=== PATIENT | female | born 2000 | race Caucasian/White ===

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

== ENCOUNTER → 2022-01-13 08:40 | Outpatient (CLI) | payer BC, SELFPAY ==
--- NOTE | 2022-01-13 08:45 | MR_ITS ---
FINAL REPORT CLINICAL HISTORY: LOWER ABD PAIN FINDINGS: Multiplanar MR imaging was obtained of the pelvis with and without contrast. The bony structures are intact without mass, fracture or bone marrow edema. The musculature is intact. There is a small amount of hemorrhage in the endometrial cavity that may be related to phase of menstrual cycle. There is a 1.7 cm cyst in the left ovary. A small amount of pelvic free fluid may be reactive or physiologic. There is no abnormal contrast enhancement. IMPRESSION: 1.7 cm left ovarian cyst. Small amount of pelvic free fluid may be reactive or physiologic. Reviewed, Interpreted and Dictated by Azar Vicente III, MD Transcribed by Oscar Horn Authenticated by Azar Vicente III, MD on 01/13/2022 11:15:27 AM [facility]
--- NOTE | 2022-01-13 08:45 | MR_ITS ---
FINAL REPORT CLINICAL HISTORY: LOWER ABD PAIN 12ml prohance given FINDINGS: Multiplanar MR imaging of the abdomen was performed without and with contrast. There is a 5 mm mass in the inferior right hepatic lobe that shows contrast enhancement on delayed imaging. There is no evidence of biliary ductal dilatation. The gallbladder has an unremarkable appearance. No other mass or adenopathy is identified. No abnormal fluid collection is seen. No other contrast enhancement is seen on the postcontrast images. IMPRESSION: 5 mm mass in the inferior right hepatic lobe may represent a small hemangioma or other mass such as an adenoma. If indicated, follow-up in 6-12 months. Reviewed, Interpreted and Dictated by Azar Vicente III, MD Transcribed by Oscar Horn Authenticated by Azar Vicente III, MD on 01/13/2022 10:54:49 AM [facility]
== END ==
PROVIDERS: PCP Internal Medicine Adolescent Medicine; Visit Provider Internal Medicine Adolescent Medicine
DX: R10.30 Lower abdominal pain, unspecified (principal)
CPT/HCPCS: 72197; 74183; A9576

== ENCOUNTER 2022-06-29 16:02 | Emergency (ER) | payer BC, SELFPAY ==
--- NOTE | 2022-06-29 16:33 | EXP.UTC ---
Discharge Plan Disposition Patient Disposition: Home, Self-Care Condition: Good Prescriptions Prescriptions: New cephalexin 500 mg capsule 500 mg PO BID 7 Days Qty: 14 0RF fluconazole [Diflucan] 150 mg tablet 150 mg PO Q3D Qty: 2 0RF Rx Instructions: may repeat second dose 72 hrs after first dose if symptoms persist No Action Nexplanon 68 mg implant 68 mg SUBDERMAL DAILY Referrals Follow up/Referrals: Oleg Hager MD [Primary Care Provider] - See instructions Activity Restrictions/Add. Instructions Additional Instructions/Restrictions: *Increase fluids. Water not Soda or Tea *Start antibiotic immediately and be sure to take as ordered for the FULL length of time although you should start to see improvement over the next 48 hours *Be SURE to follow up anytime for new or worsening symptoms with your family doctor. AND in 48 hours for urine culture results with your family doctor, if you do not have a doctor then you may call back to the [facility] for urine culture results and further treatment. We do recommend that you choose and establish care with a Primary Care Physician. ?AND follow up with them ?in 10-14 days to repeat UA to ensure infection is resolved and blood no longer present *Be sure to let your PCP know that we sent urine cultures from the [facility] so they can follow up to ensure that you area the on the correct antibiotic Call your doctor office and make appointment for 48 hours (2 days from today) ?to follow up and get the results of your urine culture and further treatment Clinical Impressions Clinical Impression: UTI symptoms Instructions Patient Instructions: Urinary Tract Infection, Fluconazole Discharge ED Provider: Monique Mcrae [facility] HPI General Stated complaint: possible UTI Time Seen by Provider: 06/29/22 16:34 History of Present Illness Provider Complaint: Patient states that she feels like she may have a UTI States that she just got back from her honeymoon and States that she has been having feeling or urgency and frequency, burning when she urinates with itching like feeling State that symptoms have been going on for about 3 days and not got better so she came in to get checked out Related Data Home Medications Medication Instructions Recorded Confirmed etonogestrel 68 mg subdermal 68 mg subdermal DAILY control 08/16/21 09/06/21 implant (Nexplanon) Previous Rx's Medication Instructions Recorded cephalexin 500 mg capsule 500 mg PO BID 7 days #14 caps 06/29/22 fluconazole 150 mg tablet 150 mg PO Q3D 2 doses #2 tabs 06/29/22 (Diflucan) Allergies Allergy/AdvReac Type Severity Reaction Status Date / Time No Known Allergies [facility] Verified 06[facility]29/22 16:48 [facility] Social History Smoking Status: Never smoker alcohol intake: never substance use type: denies use current occupational status: employed Travel in the last 8 weeks: None current occupation: [employer] caffeine: Yes ROS Obtained: Yes All systems reviewed & no additional complaints except as documented and Yes Systems reviewed as appropriate & no additional complaints except as documented Constitutional Constitutional: Reports system reviewed and no additional complaints, except as documented, Reports as per HPI, Denies chills and Denies fever(s) Eyes Eyes: Reports system reviewed and no additional complaints, except as documented and Reports as per HPI Cardiovascular Cardiovascular: Reports system reviewed and no additional complaints, except as documented and Reports as per HPI Respiratory Respiratory: Reports system reviewed and no additional complaints, except as documented and Reports as per HPI Gastrointestinal Gastrointestingal: Reports system reviewed and no additional complaints, except as documented and as per HPI; Denies abdominal pain or nausea Genitourinary Female Genitourinary: Reports system reviewed and no additiona
[2022-06-29 16:46] VITALS: BP 143/76; PULSE 81; RESP 18; TEMP 36.8; O2SAT 99; BMI 22.6
[2022-06-29 16:56] LABS: Apearance,Urine Clear (Clear); Bilirubin,Urine Negative (Negative); Blood, Urine 3+ (Negative); Color,Urine Yellow (Yellow); Glucose,Urine (UA) Negative (Negative); Ketones,Urine Negative (Negative); Protein,Urine 1+ (Negative); UTC Leukocyte Esterase,Urine Negative (Negative); UTC Nitrate,Urine Negative (Negative); Urobilinogen,Urine 1 EU/dl (0.2)
[2022-06-29 17:01] LABS: UTC Pregnancy Test, Urine Negative (Negative)
[2022-06-29 17:18] VITALS: BP 143/76; PULSE 81; RESP 18; TEMP 36.8
== END 2022-06-29 17:19 | disposition home or self-care (01) ==
PROVIDERS: Emergency Provider Nurse Practitioner; PCP Internal Medicine Adolescent Medicine
DX: N39.0 Urinary tract infection, site not specified (principal); Z79.3 Long term (current) use of hormonal contraceptives
CPT/HCPCS: 81003; 81025; 99213; G0463

== ENCOUNTER → 2023-03-01 09:38 | Outpatient (CLI) | payer BC, SELFPAY ==
--- NOTE | 2023-03-01 09:43 | US_ITS ---
FINAL REPORT TECHNIQUE: Multiple transverse and longitudinal images CLINICAL HISTORY: [place], RIGHT FLANK PAIN FINDINGS: The gallbladder shows no wall thickening, distention or stone disease. No biliary ductal dilatation is appreciated. No fluid collections are seen. Limited portions of the right liver are unremarkable. The reported subcentimeter lesion in the liver seen on a previous MRI of December 2021 is not evident on today's exam. Limited portions of the right kidney are unremarkable. IMPRESSION: 1. No evidence of cholelithiasis 2. No evidence of biliary obstruction 3. The reported subcentimeter liver lesion seen on a prior MRI of December 2021 is not evident with this modality of examination. If further follow-up is desired would recommend a repeat MRI of the abdomen. Reviewed, Interpreted and Dictated by Dereck Amador MD Transcribed by Chloé Parra Authenticated and [facility]
== END ==
LOC: RAD 09:39
PROVIDERS: PCP Internal Medicine Adolescent Medicine; Visit Provider Physician Assistant
DX: R10.9 Unspecified abdominal pain (principal); R16.0 Hepatomegaly, not elsewhere classified
CPT/HCPCS: 76705

== ENCOUNTER 2024-02-15 12:56 | Outpatient (CLI) | payer BC, SELFPAY ==
[2024-02-15 14:59] LABS: HCG,Quantitative 133 mIU/ml (0-5.42)
[2024-02-16 08:24] LABS: Progesterone 11.5 ng/mL (.)
== END 2024-02-15 23:59 | disposition home or self-care (01) ==
LOC: LAB 12:58
PROVIDERS: PCP Internal Medicine Adolescent Medicine; Visit Provider Obstetrics & Gynecology
DX: N92.6 Irregular menstruation, unspecified (principal)
CPT/HCPCS: 36415; 84144; 84702

== ENCOUNTER 2024-02-17 09:10 | Outpatient (CLI) | payer BC, SELFPAY ==
[2024-02-17 10:22] LABS: HCG,Quantitative 332 mIU/ml (0-5.42)
== END 2024-02-17 23:59 | disposition home or self-care (01) ==
LOC: LAB 09:11
PROVIDERS: PCP Nurse Practitioner Family; Visit Provider Obstetrics & Gynecology
DX: O26.891 Other specified pregnancy related conditions, first trimester (principal); Z3A.01 Less than 8 weeks gestation of pregnancy
CPT/HCPCS: 36415; 84702

== ENCOUNTER 2024-03-13 10:13 | Outpatient (CLI) | payer BC, SELFPAY ==
[2024-03-13 10:36] LABS: Basophils % 0.5 % (0.1-2.0); Eosinophils # 0.1 K/mm3 (0.0-0.4); Eosinophils % 1.2 % (0.1-12.0); Hematocrit 40.7 % (37.0-47.0); Hemoglobin 13.6 g/dL (12.2-16.2); Lymphocytes # 1.6 K/mm3 (0.7-4.5); Lymphocytes % 18.1 % (10-50); Mean Corpuscular HGB Conc 33.3 g/dL (31.8-35.4); Mean Corpuscular Hemoglobin 30.5 pg (27.0-31.2); Mean Corpuscular Volume 91.4 fl (81-99); Mean Platelet Volume 8.8 fl (7.4-10.4); Monocytes # 0.4 K/mm3 (0.1-1.0); Monocytes % 4.8 % (1.7-9.3); Neutrophils # 6.7 K/mm3 (1.8-7.8); Neutrophils % 75.4 % (37.0-80.0); Platelet Count 220 K/mm3 (142-424); Red Blood Count 4.45 M/mm3 (4.20-5.40); Red Cell Distribution Width 14.2 % (11.5-17.5); White Blood Count 8.9 K/mm3 (4.8-10.8)
[2024-03-14 07:15] LABS: HCV Ab Non Reactive (Non Reactive); Hepatitis B Surface Antigen Negative (Negative)
[2024-03-14 09:33] LABS: HIV (1&2) Antibody Rapid NON REACTIVE
[2024-03-14 11:56] LABS: Rapid Plasma Reagin Ab Titer Non Reactive titer (NonRea<1:1); Rubella Antibodies, IgG 4.13 index (Immune >0.99)
[2024-03-16 06:47] LABS: Neisseria gonorrhoeae, NAA Negative (Negative)
== END 2024-03-13 23:59 | disposition home or self-care (01) ==
LOC: LAB 10:14
PROVIDERS: PCP Internal Medicine Adolescent Medicine; Visit Provider Obstetrics & Gynecology
DX: Z34.91 Encounter for supervision of normal pregnancy, unspecified, first trimester (principal); Z3A.01 Less than 8 weeks gestation of pregnancy
CPT/HCPCS: 36415; 85025; 86593; 86762; 86850; 87086; 87088; 87186; 87340; 87491; 87591

== ENCOUNTER 2024-03-22 12:55 | Outpatient (CLI) | payer BC, SELFPAY ==
--- NOTE | 2024-03-22 13:09 | US_ITS ---
PROCEDURE: US OB <= 14 WEEKS FETUS CLINICAL INDICATION: viability COMPARISON: No exams were available for comparison FINDINGS: Transvaginal sonographic images of the pelvis were obtained. From her last menstrual period she is 8weeks 1day. An intrauterine gestational sac is present with a pole with a crown-rump length of 1.4cm This correlates to a gestational age of 7weeks 5days. heart tones are absent. Yolk sac is noted. The yolk sac is collapsed. The right ovary is seen and appears normal. There is a corpus luteum in the right ovary. The left ovary is seen and appears normal. There is trace fluid around the left adnexa. There is no fluid in the cul-de-sac. IMPRESSION: 1. Nonviable fetus within the uterine cavity. heart rate activity is not detected. The fetus measures 7 weeks 5 days. 2. Both ovaries are seen and appear normal. There is a trace amount of fluid around the left ovary. 3. No fluid in the cul-de-sac. 4. Dr. Pradhan was present during the ultrasound. Dictated by: Anastacio Fuentes MD 03/23/2024 08:52 Anastacio Fuentes MD in [place] 03/23/2024 08:52
== END 2024-03-22 23:59 | disposition home or self-care (01) ==
LOC: RAD 12:55
PROVIDERS: Visit Provider Obstetrics & Gynecology
DX: O03.9 Complete or unspecified spontaneous abortion without complication (principal); Z3A.01 Less than 8 weeks gestation of pregnancy
CPT/HCPCS: 76801

== ENCOUNTER 2024-04-01 16:08 | Outpatient (CLI) | payer BC, SELFPAY ==
[2024-04-01 20:36] LABS: HCG,Quantitative 50117 mIU/ml (0-5.42)
== END 2024-04-01 23:59 | disposition home or self-care (01) ==
LOC: LAB.DROPOF 16:08
PROVIDERS: PCP Obstetrics & Gynecology; Visit Provider Obstetrics & Gynecology
DX: N96 Recurrent pregnancy loss (principal)
CPT/HCPCS: 84702

== ENCOUNTER 2024-04-08 09:17 | Outpatient (CLI) | payer BC, SELFPAY ==
[2024-04-08 11:14] LABS: HCG,Quantitative 13669 mIU/ml (0-5.42)
== END 2024-04-08 23:59 | disposition home or self-care (01) ==
LOC: LAB 09:17
PROVIDERS: PCP Internal Medicine Adolescent Medicine; Visit Provider Obstetrics & Gynecology
DX: O03.9 Complete or unspecified spontaneous abortion without complication (principal)
CPT/HCPCS: 36415; 84702

== ENCOUNTER 2024-04-16 16:34 | Outpatient (CLI) | payer BC, SELFPAY ==
[2024-04-16 18:55] LABS: HCG,Quantitative 2288 mIU/ml (0-5.42)
== END 2024-04-16 23:59 | disposition home or self-care (01) ==
LOC: LAB 16:35
PROVIDERS: PCP Internal Medicine Adolescent Medicine; Visit Provider Obstetrics & Gynecology
DX: N96 Recurrent pregnancy loss (principal)
CPT/HCPCS: 36415; 84702

== ENCOUNTER 2024-04-23 09:15 | Outpatient (CLI) | payer BC, SELFPAY ==
[2024-04-23 10:46] LABS: HCG,Quantitative 805 mIU/ml (0-5.42)
== END 2024-04-23 23:59 | disposition home or self-care (01) ==
PROVIDERS: PCP Internal Medicine Adolescent Medicine; Visit Provider Obstetrics & Gynecology
DX: O03.9 Complete or unspecified spontaneous abortion without complication (principal)
CPT/HCPCS: 36415; 84702

== ENCOUNTER 2024-04-30 10:56 | Outpatient (CLI) | payer BC, SELFPAY ==
[2024-04-30 11:55] LABS: HCG,Quantitative 202 mIU/ml (0-5.42)
== END 2024-04-30 23:59 | disposition home or self-care (01) ==
PROVIDERS: PCP Internal Medicine Adolescent Medicine; Visit Provider Obstetrics & Gynecology
DX: O03.9 Complete or unspecified spontaneous abortion without complication (principal)
CPT/HCPCS: 36415; 84702

== ENCOUNTER 2024-05-09 10:08 | Outpatient (CLI) | payer BC, SELFPAY ==
[2024-05-09 11:10] LABS: HCG,Quantitative 4 mIU/ml (0-5.42)
== END 2024-05-09 23:59 | disposition home or self-care (01) ==
PROVIDERS: PCP Nurse Practitioner Family; Visit Provider Obstetrics & Gynecology
DX: N96 Recurrent pregnancy loss
CPT/HCPCS: 36415; 84702

== ENCOUNTER 2024-05-13 11:31 | Outpatient (CLI) | payer BC, SELFPAY ==
[2024-05-13 13:29] LABS: HCG,Quantitative < 2 mIU/ml (0-5.42)
== END 2024-05-13 23:59 | disposition home or self-care (01) ==
LOC: LAB 11:32
PROVIDERS: PCP Internal Medicine Adolescent Medicine; Visit Provider Obstetrics & Gynecology
DX: N96 Recurrent pregnancy loss (principal)
CPT/HCPCS: 36415; 84702

== ENCOUNTER 2024-07-10 11:11 | Outpatient (CLI) | payer BC, SELFPAY ==
[2024-07-10 12:41] LABS: Thyroid Stimulating Hormone 1.58 uIU/mL (0.465-4.68)
== END 2024-07-10 23:59 | disposition home or self-care (01) ==
LOC: LAB 11:13
PROVIDERS: PCP Nurse Practitioner Family; Visit Provider Obstetrics & Gynecology
DX: N96 Recurrent pregnancy loss (principal)
CPT/HCPCS: 36415; 84443

== ENCOUNTER 2024-07-26 13:30 | Outpatient (CLI) | payer BC, SELFPAY ==
[2024-08-15 14:20] LABS: Miscellaneous Test SCANNED IMAGE
== END 2024-07-26 23:59 | disposition home or self-care (01) ==
PROVIDERS: PCP Internal Medicine Adolescent Medicine; Visit Provider Obstetrics & Gynecology
DX: N96 Recurrent pregnancy loss (principal)
CPT/HCPCS: 88230; 88262

== ENCOUNTER 2024-07-31 12:14 | Outpatient (CLI) | payer BC, SELFPAY ==
[2024-07-31 13:02] LABS: Basophils # 0.1 K/mm3 (0-0.2); Basophils % 1.3 % (0.1-2.0); Eosinophils # 0.1 K/mm3 (0.0-0.4); Hematocrit 43.9 % (37.0-47.0); Hemoglobin 15.4 g/dL (12.2-16.2); Lymphocytes # 1.9 K/mm3 (0.7-4.5); Lymphocytes % 29.2 % (10-50); Mean Corpuscular HGB Conc 35.1 g/dL (31.8-35.4); Mean Corpuscular Hemoglobin 30.6 pg (27.0-31.2); Mean Corpuscular Volume 87.3 fl (81-99); Mean Platelet Volume 9.2 fl (7.4-10.4); Monocytes # 0.4 K/mm3 (0.1-1.0); Monocytes % 6.4 % (1.7-9.3); Neutrophils # 4.1 K/mm3 (1.8-7.8); Neutrophils % 62.1 % (37.0-80.0); Platelet Count 211 K/mm3 (142-424); Red Blood Count 5.03 M/mm3 (4.20-5.40); Red Cell Distribution Width 13.7 % (11.5-17.5); White Blood Count 6.5 K/mm3 (4.8-10.8)
[2024-07-31 13:57] LABS: Albumin Level 4.6 g/dl (3.5-5.0); Chloride 105 mmol/L (98-107)
[2024-07-31 13:58] LABS: Potassium 4.1 mmoL/L (3.5-5.1); Sodium 139 mmol/L (136-145)
[2024-07-31 14:00] LABS: Alanine Aminotransferase 17 U/L (12-78); Anion Gap 11.1 mEq/L (5-15); Aspartate Amino Transferase 24 U/L (14-36); Bilirubin,Total 1.7 mg/dl (0.2-1.3); Blood Urea Nitrogen 11 mg/dl (7-17); Carbon Dioxide 27 mmol/L (22.0-30.0); Estimated Glomerular Filt Rate 105 ml/min (>60); GFR (African American) 127 ML/MIN (>60)
[2024-07-31 14:01] LABS: Albumin/Globulin Ratio 1.8 (1.1-1.8); Alkaline Phosphatase 54 U/L (38-126); Calcium 9.4 mg/dl (8.4-10.2); Globulin 2.5 g/dL (1.3-3.2); Glucose 87 mg/dl (74-100); Total Protein,Serum 7.1 g/dl (6.3-8.2)
[2024-07-31 14:20] LABS: HCG,Quantitative < 2 mIU/ml (0-5.42)
== END 2024-07-31 23:59 | disposition home or self-care (01) ==
LOC: PREOP 12:14
PROVIDERS: PCP Internal Medicine Adolescent Medicine; Visit Provider Obstetrics & Gynecology
DX: N96 Recurrent pregnancy loss (principal)
CPT/HCPCS: 36415; 80053; 84702; 85025

== ENCOUNTER 2024-08-06 06:02 | Day surgery (SDC) | payer BC, SELFPAY ==
[2024-07-31 12:29] VITALS: BMI 23.9
[2024-08-06] VITALS (9 sets, daily range): BP systolic 119–146; BP diastolic 71–97; PULSE 53–87; RESP 12–18; TEMP 36.5–36.8; O2SAT 93–100
[2024-08-06] MEDS: LACTATED RINGERS 1000ML 1,000 ML 25 ML IV (06:42)
--- NOTE | 2024-08-06 07:20 | P.PNANES_ITS ---
[facility] Disclaimer: The information contained in this section may have been updated after the patient was seen, as this information can be updated by other users. Medical History SAB (spontaneous ) Surgical History H/O dilation and curettage 10/12/2023, [facility] [place] teeth removed Family History Other Asthma Coronary artery disease Heart attack Hypertension Social History (Updated 08/06/24 @ 06:41 by Nohemi Desai RN) Smoking Status: Former smoker alcohol intake: never substance use type: denies use current occupational status: employed Travel in the last 8 weeks: None current occupation: [employer] caffeine: Yes [facility] Anesthesia Checklist Patient Identification Patient Identification: Arm Band, Family and Verbal (Name & ) Structural Data Admitted From: Home Planned Operative Procedure/s: D&C; Myosure Consent for Planned Operative Procedure(s) Verified: Yes Verified Documents: Surgical Consent and History and Physical NPO Status Verified Time NPO: 23:00 Chart Verification Results Verified: CBC, BMP and HCG Additional verifications Patient : No Anesthesia Reactions: No Hx Blood Transfusions: No Blood Transfusion Reaction: No Cardiovascular Assessment Heart Sounds: S1 & S2 Pulse Rhythm: Irregular Peripheral Edema: No Airway Assessment Mallampati Score:: Class II C-Spine Mobility Assessed: Yes Dentition: Good Dentition (Nothing loose per pt.) Neurological Assessment Level of Consciousness: Awake, Alert, Appropriate and Follows Commands Hx Seizures: No Numbness or tingling in extremities: No Anesthesia Plan Anesthesia Risk discussed: Yes Anesthesia Plan: Verified ASA Class: II Anesthesia Type: General
[2024-08-06] MEDS: SODIUM CHLORIDE IRRIG SOLUTION 3,000 ML 25 ML IR (07:45)
--- NOTE | 2024-08-06 08:06 | EXP.ANES.I ---
[facility] Anesthesia Record Part I Anesthesia Record I Intake, IV Amount: 800 Hydration: Adequate Estimated blood loss (mL): 0 Urine output (mL): 0 Blood Pressure: 143/97 SaO2: 100 Pulse Rate: 87 Airway Patency: Patent Respiratory Rate: 12 Temperature: 97.9 F Patient is:: Awake and Stable Stable to PACU at:: 08:03
[2024-08-06] MEDS: MEPERIDINE 25MG/ML 1ML SYRINGE 25 MG IV (08:15)
--- NOTE | 2024-08-06 08:32 | P.OP_ITS ---
Date of procedure: 08/06/24 Pre-op Diagnosis:: 1. Recurrent spontaneous 2. Needs Pap smear Post-op Diagnosis:: 1. Recurrent spontaneous 2. Needs Pap smear Procedure performed:: Hysteroscopy and dilation Surgeon:: Mylene Pradhan DO RESOLUTION MANAGER:: Michael Fernandes Anesthesia: GETA Estimated blood loss (mL): 5 Operative findings:: Findings: -EUA revealed an 8-week anteverted uterus with regular contour. No significant prolapse or support defects noted. -Hysteroscopy revealed bilaterally patent tubal ostia. No polyps or septum identified. No abnormalities noted. Operative note:: The patient was taken back to the OR where general anesthesia was obtained.? She was placed in the dorsal lithotomy position using yellow fin stirrups and sterilely prepped and draped in the usual fashion. A timeout was performed.? A weighted speculum was used to visualize this cervix, and pap smear was collected. A single-tooth tenaculum was applied to the anterior lip of the cervix. The cervix was only slightly dilated to allow entry to the ectocervix and hydrodisection was used to get the scope the rest of the way into the cavity. The hysterscope was inserted and no abnormalities were noted as described above. Images were obtained of the cavity on a mobile device without identifing information as the printer was not working in the OR. The single- tooth tenaculum was removed and hemostasis was noted at the tenaculum sites.? All instruments were removed from the vagina.? All counts were correct, per nursing.? This concluded the procedure, the patient was awakened from anesthesia, and transferred to the PACU in stable condition. Condition: stable Disposition: same day Complications:: None
--- NOTE | 2024-08-06 09:44 | SUR.PHASEII ---
Pt ready to go @ 09. DC delayed r/t waiting on clinic pharmacy. Pt not able to leave until 929.
[2024-08-07 10:01] VITALS: BP 122/71; PULSE 62; RESP 18; TEMP 36.1; O2SAT 97
--- NOTE | 2024-08-07 10:01 | P.PNANES_ITS ---
[facility] Anesthesia Record Part II Anesthesia Record Part II Discharge Time: 08:33 Destination: Surgical Day Care (OP Surgery) PACU nurse assessment reviewed?: Yes Patient Condition:: Good Anesthesia Complications:: None Swallowing reflex intact?: Yes Airway Patency: Patent Cyanosis?: No Blood Pressure: 122/71 SaO2: 97 Respiratory Rate: 18 Pulse Rate: 62 Temperature: 97 F Mental Status: Alert & Oriented Pain level:: 0 Nausea and/or vomitting:: None Intake, IV Amount: 0 Hydration: Adequate
== END 2024-08-06 09:30 | disposition home or self-care (01) ==
PROVIDERS: PCP Internal Medicine Adolescent Medicine; Visit Provider Obstetrics & Gynecology
PROC: (CPT 58558; principal; 2024-08-06 07:30)
DX: N96 Recurrent pregnancy loss (principal)
CPT/HCPCS: 58558; J1100; J2175; J2250; J2405; J3010; J7120

== ENCOUNTER 2024-08-21 13:38 | Outpatient (CLI) | payer BC, SELFPAY ==
[2024-08-23 09:29] LABS: Prolactin 10.3
== END 2024-08-21 23:59 | disposition home or self-care (01) ==
LOC: LAB 13:40
PROVIDERS: PCP Internal Medicine Adolescent Medicine; Visit Provider Obstetrics & Gynecology
DX: N64.3 Galactorrhea not associated with childbirth (principal)
CPT/HCPCS: 36415; 84146

== ENCOUNTER 2024-12-02 11:07 | Outpatient (CLI) | payer OTHER, SELFPAY ==
[2024-12-02 12:13] LABS: HCG,Quantitative 7 mIU/ml (0-5.42)
== END 2024-12-02 23:59 | disposition home or self-care (01) ==
LOC: LAB 11:09
PROVIDERS: PCP Nurse Practitioner Family; Visit Provider Obstetrics & Gynecology
DX: Z32.01 Encounter for pregnancy test, result positive (principal)
CPT/HCPCS: 36415; 84702

== ENCOUNTER 2024-12-04 08:47 | Outpatient (CLI) | payer OTHER, SELFPAY ==
[2024-12-04 12:10] LABS: HCG,Quantitative 33 mIU/ml (0-5.42)
[2024-12-05 08:48] LABS: Progesterone 18.6 ng/mL (.)
== END 2024-12-04 23:59 | disposition home or self-care (01) ==
PROVIDERS: PCP Nurse Practitioner Family; Visit Provider Obstetrics & Gynecology
DX: Z32.01 Encounter for pregnancy test, result positive (principal)
CPT/HCPCS: 36415; 84144; 84702

== ENCOUNTER 2024-12-09 09:06 | Outpatient (CLI) | payer OTHER, SELFPAY ==
[2024-12-09 10:23] LABS: HCG,Quantitative 218 mIU/ml (0-5.42)
== END 2024-12-09 23:59 | disposition home or self-care (01) ==
LOC: LAB 09:07
PROVIDERS: PCP Nurse Practitioner Family; Visit Provider Obstetrics & Gynecology
DX: Z34.90 Encounter for supervision of normal pregnancy, unspecified, unspecified trimester (principal)
CPT/HCPCS: 36415; 84702

== ENCOUNTER 2024-12-16 09:36 | Outpatient (CLI) | payer OTHER, SELFPAY ==
[2024-12-16 11:40] LABS: HCG,Quantitative 2675 mIU/ml (0-5.42)
== END 2024-12-16 23:59 | disposition home or self-care (01) ==
LOC: LAB 09:38
PROVIDERS: PCP Nurse Practitioner Family; Visit Provider Obstetrics & Gynecology
DX: Z32.01 Encounter for pregnancy test, result positive (principal)
CPT/HCPCS: 36415; 84702

== ENCOUNTER 2025-01-07 13:25 | Outpatient (CLI) | payer OTHER, SELFPAY ==
[2025-01-07 14:22] LABS: Basophils # 0.1 K/mm3 (0-0.2); Basophils % 0.4 % (0.1-2.0); Eosinophils % 0.3 % (0.1-12.0); Hematocrit 39.1 % (37.0-47.0); Hemoglobin 13.9 g/dL (12.2-16.2); Lymphocytes # 1.8 K/mm3 (0.7-4.5); Lymphocytes % 16.2 % (10-50); Mean Corpuscular HGB Conc 35.5 g/dL (31.8-35.4); Mean Corpuscular Hemoglobin 30.8 pg (27.0-31.2); Mean Corpuscular Volume 86.5 fl (81-99); Mean Platelet Volume 11.1 fl (7.4-10.4); Monocytes # 0.6 K/mm3 (0.1-1.0); Neutrophils # 8.7 K/mm3 (1.8-7.8); Neutrophils % 77.7 % (37.0-80.0); Nucleated Red Blood Cells # 0 10^3/uL; Nucleated Red Blood Cells % 0 %; Platelet Count 240 K/mm3 (142-424); Red Blood Count 4.52 M/mm3 (4.20-5.40); Red Cell Distribution Width 12.1 % (11.5-17.5); Red Cell Distribution Width-SD 38.5 fL; White Blood Count 11.2 K/mm3 (4.8-10.8)
[2025-01-07 23:42] LABS: RPR W/RFX Titers Nonreactive (Nonreactive)
[2025-01-08 05:57] LABS: Hepatitis B Surface Antigen Negative (Negative)
[2025-01-08 08:42] LABS: Rubella Antibodies, IgG 4.27 index (Immune >0.99)
[2025-01-10 06:12] LABS: Neisseria gonorrhoeae, NAA Negative (Negative)
== END 2025-01-07 23:59 | disposition home or self-care (01) ==
LOC: LAB 13:25
PROVIDERS: PCP Nurse Practitioner Family; Visit Provider Obstetrics & Gynecology
DX: Z34.01 Encounter for supervision of normal first pregnancy, first trimester (principal); Z3A.08 8 weeks gestation of pregnancy
CPT/HCPCS: 36415; 85025; 86592; 86762; 86850; 87340; 87491; 87591

== ENCOUNTER 2025-03-31 08:38 | Outpatient (CLI) | payer OTHER, SELFPAY ==
--- OUTSIDE RECORDS SUMMARY | 2019-05-30 06:15 | XMS_ITS | Continuity of Care Document ---
Author Organization [facility] [employer] Address [address] [place] [address] Phone Care Team Providers Care Optical Instrument Assembly Supervisor Name Role Phone Gray Melecio BAUM Unavailable Unavailable Procedures Procedure Date Periodic Oral Evaluation Established Patient Bitewings Two Films Periodic Oral Evaluation Established Patient Prophylaxis Child Topical Fluoride Varnish; Therapeutic Ap plication Caries Risk Assessment & Documentation, Moderate Prophylaxis Child Topical Fluoride Varnish; Therapeutic Ap plication Caries Risk Assessment & Documentation, Moderate Periodic Oral Evaluation Established Patient Caries Risk Assessment & Documentation, Moderate Periodic Oral Evaluation Established Patient Prophylaxis Child Topical Fluoride Varnish; Therapeutic Ap plication Caries Risk Assessment & Documentation, Moderate Prophylaxis Child Topical Fluoride Varnish; Therapeutic Ap plication Caries Risk Assessment & Documentation, Low Risk Periodic Oral Evaluation Established Patient Caries Risk Assessment & Documentation, Low Risk Periodic Oral Evaluation Established Patient Prophylaxis Child Topical Fluoride Varnish; Therapeutic Ap plication Sedative Filling Periodic Oral Evaluation Established Patient Bitewings Two Films Prophylaxis Child Topical Fluoride Varnish; Therapeutic Ap plication Sealant Per Tooth Resin-Based Composite Two Surfaces, Posterior Prophylaxis Child Topical Fluoride Varnish; Therapeutic Ap plication Periodic Oral Evaluation Established Patient Non-Billable Services Non-Billable Services Periodic Oral Evaluation Established Patient Bitewings Two Films Resin-Based Composite One Surface, Posterior Intraoral Periapical First Pool 11 Extraction, Erupted Tooth Or Exposed Angelina t (Elevati Periodic Oral Examination Bitewings Two Films Advance Directives Directive Yes / No Effective Date File Name No Information Encounters Encounter Description Practice Location Reason(s) For Visit Diagnoses Date Provider Providers Copied on Encounter [facility] [employer], [address], [place], [place], [address], tel:[phone] [facility] DEN-Encounte r for dental exam and cleaning w/o abnormal findingsDEN- Encounter for dental exam and cleaning w abnormal findings 9 Marina Majano. [address], [place], [place], [address], [place]. tel:[phone] Referring Provider: Melecio Corrales, [address], [place], [address] . tel:[phone] [facility] [employer], [address], [place], [place], [address], tel:[phone] [facility] No Information 9 Toñito Dwyer. [address], [place], [place], [address], [place]. tel:[phone] Referring Provider: Skyla Sibley, [address], [place], [address] . tel:[phone] [facility] [employer], [address], [place], [place], [address], tel:[phone] [facility] No Information 7 Lacie Ybarra. [address], [place], [place], [address], [place]. tel:[phone] Referring Provider: Tate Lara, [address], [place], [address] . tel:[phone] [facility] [employer], [address], [place], [place], [address], [place] tel:[phone] [place] [address] No Information 7 Lacie Ybarra. [address], [place], [place], [address], [place]. tel:[phone] Referring Provider: Tate Lara, [address], [place], [address] . tel:[phone] [facility], [address], [place], [place], [address], [place] tel:[phone] [place] [address] No Information 7 Lacie Ybarra. [address], [place], [place], [address], [place]. tel:[phone] Referring Provider: Tate Lara, [address], [place], [address] . tel:[phone] [facility] [employer], [address], [place], [place], [address], [place] tel:[phone] [place] [address] No Information 5 Lacie Ybarra. [address], [place], [place], [address], [place]. tel:[phone] Referring Provider: Tate Lara, [address], [place], [address] . tel:[phone] [facility], [address], [place], [place], [address], [place] tel:[phone] [place] [address] No Information 5 Bhavik Gusman. [address], [place], [place], [address], [place]. tel:[phone] Referring Provider: Naseem Machado, [address], [place], [address] . tel:[phone] [facility], [address], [place], [place], [address], [place] tel:[phone] [facility] Dental examination 3 Bhavik Gusman. [address], [place], [place], [address], [place]. tel:[phone] Referring Provider: Naseem Machado, [address], [place], [address] . tel:[phone] [facility] [employer], [address], [place], [place], [address], [place] tel:[phone] [facility] Dental examination 3 Lacie Ybarra. [address], [place], [place], [address], [place]. tel:[phone] Referring Provider: Tate Lara, [address], [place], [address] . tel:[phone] [facility], [address], [place], [place], [address], [place] tel:[phone] [facility] Dental examination 3 No Information [facility], [address], [place], [place], [address], [place] tel:[phone] [facility] Dental examination 3 Bhavik Gusman. [address], [place], [place], [address], [place]. tel:[phone] Referring Provider: Naseem Machado, [address], [place], [address] . tel:[phone] [facility], [address], [place], [place], [address], [place] tel:[phone] [facility] Dental examination 3 Laice Ybarra. [address], [place], [place], [address], [place]. tel:[phone] Referring Provider: Tate Lara, [address], [place], [address] . tel:[phone] [facility], [address], [place], [place], [address], [place] tel:[phone] [facility] Dental examination 2 Lacie Ybarra. [address], [place], [place], [address], [place]. tel:[phone] Referring Provider: Tate Lara, [address], [place], [address] . tel:[phone] [facility], [address], [place], [place], [address], [place] tel:[phone] [facility] No Information 2 Bhavik Gusman. [address], [place], [place], [address], [place]. tel:[phone] Referring Provider: Naseem Machado, [address], [place], [address] . tel:[phone] [facility], [address], [place], [place], [address], [place] tel:[phone] [facility] No Information 2 Lacie bYarra. [address], [place], [place], [address], [place]. tel:[phone] Referring Provider: Tate Lara, [address], [place], [address] . tel:[phone] [facility], [address], [place], [place], [address], [place] tel:[phone] [facility] No Information 2 Bhavik Gusman. [address], [place], [place], [address], [place]. tel:[phone] Referring Provider: Naseem Machado, [address], [place], [address] . tel:[phone] [facility], [address], [place], [place], [address], tel:[phone] [facility] Dental examination 2 No Information [facility], [address], [place], [place], [address], tel:[phone] [facility] Dental examination 2 No Information [facility], [address], [place], [place], [address], tel:[phone] [facility] Dental examination 1 Lacie Ybarra. [address], [place], [address], . tel:[phone] Referring Provider: Tate Lara, [address], [place], [address] . tel:[phone] [facility], [address], [place], [place], [address], tel:[phone] [facility] Dental examination 1 No Information [facility], [address], [place], [place], [address], tel:[phone] [facility] Dental examination 1 No Information Family History Family Member Type Diagnosis Age At Onset No Information Payers Payer name Insurance type Covered green party ID Sheng dong(s) [employer] [id number] Social History Type Description Quantity Date Captured Comments Sex Female Smoking Status No Information Chief Complaint And Reason For Visit No Information Reason For Referral Reason For Referral No Information History Of Present Illness Encounter Date Complaint History Of Prese nt Illness No Information Functional Status Date Functional Assessmen t No Information Instructions Date Instruction Additional Infor mation No Information Assessments Type Assessment Date No Information Patient Care Teams Name Effective Dates (start - stop) Status Members No Information
--- NOTE | 2025-03-31 09:00 | US_ITS ---
PROCEDURE: US OB /MATERNAL DETAIL CLINICAL INDICATION: 20 week anatomy scan COMPARISON: US US OB TRANSVAGINAL from 03/31/2025 FINDINGS: Transabdominal sonographic images of the pelvis were obtained. From her established due date she is 20 weeks 4 days. Single viable intrauterine gestation. Cephalic position. Placenta: Anteriorplacenta grade 1. There is an average amount of fluid. The cervix appears satisfactory. Closed and measuring 3.75 cm in length. Complete survey performed and was unremarkable on the submitted images as in PACS. No discrete anomalies identified on survey imaging by technologist. Active fetus. Three-vessel cord with satisfactory umbilical cord insertion. 4- chamber heart noted. Situs, aortic arch, LVOT, RVOT, three-vessel view appear normal. Survey of brain & ventricles Unremarkable. Cerebellum, thalamus, choroid plexus, cisterna magna appear normal. Face and neck survey unremarkable. Profile, nasion, lips and nose appeared normal. Diaphragm and chest views unremarkable. Abdomen: Both kidneys noted and unremarkable. Stomach and bladder noted and satisfactory. Spine: Survey of the spine satisfactory with no anomalies identified nor imaged. Cervical, thoracic, lower spine appear normal. Both arms and legs noted. Amniotic Fluid: Adequate. MVP 3.60 cm Measurements: Average ultrasound age 20weeks 5days. Estimated due date by ultrasound age 1108/13/2025. Estimated weight 366g BPD = 20weeks 1day HC = 20weeks 6days AC = 20weeks 3days FL = 21weeks 0 days Growth Percentile= 47 Heart Rate = 144bpm Cerebellum = 20weeks 1day Humerus = 20weeks 6days HC/AC is 1.22 FL/BPD is 0.74 FL/AC is 0.23 IMPRESSION: 1. Viable fetus in the cephalic presentation with an anterior placenta grade 1. 2. The fluid is within normal limits with an MVP 3.60 cm. 3. Anatomical scan appears normal. 4. biometry is consistent with the dates. Dictated by: Anastacio Fuentes MD 03/31/2025 13:46 Anastacio Fuentes MD in OV 03/31/2025 13:46
--- NOTE | 2025-03-31 09:00 | US_ITS ---
PROCEDURE: US OB TRANSVAGINAL CLINICAL INDICATION: needs 03/31/25 for cervical length COMPARISON: No exams were available for comparison FINDINGS: Transvaginal sonographic images of the cervix were obtained. From her last menstrual period she is 20weeks 4days. Cervix measures 3.72-3.75 cm when measured transvaginally. head is seen in the cephalic presentation. IMPRESSION: 1. Cervix is seen and is normal in length measuring 3.75 cm. 2. Fetus is in the cephalic presentation. Dictated by: Anastacio Fuentes MD 03/31/2025 13:41 Anastacio Fuentes MD in OV 03/31/2025 13:41
== END 2025-03-31 23:59 | disposition home or self-care (01) ==
LOC: RAD 08:39
PROVIDERS: PCP Nurse Practitioner Family; Visit Provider Obstetrics & Gynecology
DX: O26.22 Pregnancy care for patient with recurrent pregnancy loss, second trimester (principal); Z36.3 Encounter for antenatal screening for malformations; Z3A.20 20 weeks gestation of pregnancy
CPT/HCPCS: 76811; 76817

== ENCOUNTER 2025-04-23 11:02 | Outpatient (CLI) | payer OTHER, SELFPAY ==
--- OUTSIDE RECORDS SUMMARY | 2019-05-30 06:15 | XMS_ITS | Continuity of Care Document ---
Author Organization [employer] Address [address] [place] [address] Phone Care Team Providers Care Wholesale Manager Name Role Phone Gray Melecio BAUM Unavailable [...] Diagnoses Date Provider Providers Copied on Encounter [facility] [employer], [address], [place], [place], [address], tel:[phone] [facility] DEN-Encounte r for dental exam and cleaning w/o abnormal findingsDEN- Encounter for dental exam and cleaning w abnormal findings 9 Marina Mjaano. [address], [place], [place], [address], [place]. tel:[phone] Referring Provider: Melecio Corrales, [address], [place], [address] . tel:[phone] [facility] [employer], [address], [place], [place], [address], tel:[phone] [facility] No Information 9 Toñito Dwyer. [address], [place], [place], [address], [place]. tel:[phone] Referring Provider: Skyla Sibley, [address], [place], [address] . tel:[phone] [facility] [employer], [address], [place], [place], [address], tel:[phone] [facility] No Information 7 Lacie Ybarra. [address], [place], [place], [address], [place]. tel:[phone] Referring Provider: Tate Lara, [address], [place], [address] . tel:[phone] [facility] [employer], [address], [place], [place], [address], [place] tel:[phone] [place] [address] No Information 7 Lacie Ybarra. [address], [place], [place], [address], [place]. tel:[phone] Referring Provider: Tate Lara, [address], [place], [address] . tel:[phone] [facility] [employer], [address], [place], [place], [address], [place] tel:[phone] [place] [address] No Information 7 Lacie Ybarra. [address], [place], [place], [address], [place]. tel:[phone] Referring Provider: Tate Lara, [address], [place], [address] . tel:[phone] [facility] [employer], [address], [place], [place], [address], [place] tel:[phone] [place] [address] No Information 5 Lacie Ybarra. [address], [place], [place], [address], [place]. tel:[phone] Referring Provider: Tate Lara, [address], [place], [address] . tel:[phone] [facility] [employer], [address], [place], [place], [address], [place] tel:[phone] [place] [address] No Information 5 Bhavik Gusman. [address], [place], [place], [address], [place]. tel:[phone] Referring Provider: Naseem Machado, [address], [place], [address] . tel:[phone] [facility], [address], [place], [place], [address], [place] tel:[phone] [facility] Dental examination 3 Bhavik Gusman. [address], [place], [place], [address], [place]. tel:[phone] Referring Provider: Naseem Machado, [address], [place], [address] . tel:[phone] [facility], [address], [place], [place], [address], [place] tel:[phone] [facility] Dental examination 3 Lacie Ybarra. [address], [place], [place], [address], [place]. tel:[phone] Referring Provider: Tate Lara, [address], [place], [address] . tel:[phone] [facility], [address], [place], [place], [address], [place] tel:[phone] [facility] Dental examination 3 No Information [facility], [address], [place], [place], [address], [place] tel:[phone] [facility] Dental examination 3 Bhavik Gusman. [address], [place], [place], [address], [place]. tel:[phone] Referring Provider: Naseem Machado, [address], [place], [address] . tel:[phone] [facility] [employer], [address], [place], [place], [address], [place] tel:[phone] [facility] Dental examination 3 Lacie Ybarra. [address], [place], [place], [address], [place]. tel:[phone] Referring Provider: Tate Lara, [address], [place], [address] . tel:[phone] [facility] [employer] [facility], [address], [place], [place], [address], [place] tel:[phone] [facility] Dental examination 2 Lacie Ybarra. [address], [place], [place], [address], [place]. tel:[phone] Referring Provider: Tate Lara, [address], [place], [address] . tel:[phone] [facility] [employer], [address], [place], [place], [address], [place] tel:[phone] [facility] No Information 2 Bhavik Gusman. [address], [place], [place], [address], [place]. tel:[phone] Referring Provider: Naseem Machado, [address], [place], [address] . tel:[phone] [facility] [facility], [address], [place], [place], [address], [place] tel:[phone] [facility] No Information 2 Lacie Ybarra. [address], [place], [place], [address], [place]. tel:[phone] Referring Provider: Tate Lara, [address], [place], [address] . tel:[phone] [facility], [address], [place], [place], [address], [place] tel:[phone] [facility] No Information 2 Bhavik Gusman. [address], [place], [place], [address], [place]. tel:[phone] Referring Provider: Naseem Machado, [address], [place], [address] . tel:[phone] [facility], [address], [place], [place], [address], tel:[phone] [facility] Dental examination 2 No Information [facility], [address], [place], [place], [address], tel:[phone] [facility] Dental examination 2 No Information [facility], [address], [place], [place], [address], tel:[phone] [facility] Dental examination 1 Lacie Ybarra. [address], [place], [address], . tel:[phone] Referring Provider: Tate Lara, [address], [place], [address] . tel:[phone] [facility], [address], [place], [place], [address], tel:[phone] [facility] Dental examination 1 No Information [facility], [address], [place], [place], [address], tel:[phone] [facility] Dental examination 1 No Information Family History Family Member Type Diagnosis Age At Onset No Information Payers Payer name Insurance type Covered libertarian ID Sheng dong(s) [id number] Social History Type Description Quantity Date Captured [...]
--- OUTSIDE RECORDS SUMMARY | 2025-04-23 11:08 | XMS_ITS | Clinical Summary ---
Author Organization [facility] Address [address] [place] [address] Care Team Providers Care On Air Talent Name Role Phone Oleg Hager MD Primary Care Provider + [phone] Allergies Active Allergy Reactions Criticality Noted Date Comments Latex Itching 08/03/2022 Medications Vit-Fe Fumarate-FA ( VITAMIN PO) Take 1 tablet by mouth Daily. Active promethazine (PHENERGAN) 12.5 MG tablet Take 1 tablet by mouth Every 6 (Six) Hours As Needed for Nausea or Vomiting. 20 tablet 09/22/2023 Active Progesterone (Prometrium) 200 MG capsule Take 1 capsule by mouth Daily. 30 capsule 09/29/2023 Active oxyCODONE-aceta minophen (Percocet) 5-325 MG per tabletIndicatio ns:Status post dilation and curettage Take 1 tablet by mouth Every 8 (Eight) Hours As Needed for Moderate Pain. 8 tablet 10/12/2023 Active ibuprofen (ADVIL,MOTRIN) 800 MG tablet Take 1 tablet by mouth Every 8 (Eight) Hours As Needed for Mild Pain. 30 tablet 1 10/12/2023 Active promethazine (PHENERGAN) 12.5 MG tablet Take 1 tablet by mouth Every 6 (Six) Hours As Needed for Nausea. 12 tablet 1 10/12/2023 Active levonorgestrel- ethinyl estradiol (AVIANE,ALESSE, LESSINA) 0.1-20 MG-MCG per tablet Take 1 tablet by mouth Daily. 28 tablet 12 12/11/2023 Active Active Problems Problem Noted Date Diagnosed Date Nausea and vomiting of , antepartum Overview (09/22/2023): Promethazine suppository given. Advised to try to eat and drink small amounts and take vitamin B6 bid, famotidine 20 mg daily, unisom or promethazine qhs. Promethazine PO q6h prn. Continue to try to eat small frequent meals. Call prn Threatened 09/22/2023 Overview (10/06/2023): 09/14- irregular GS measuring 6w1d, size not c/w dates but reports irregular menses. 09/22- GS measurine 5w5d with FHR 90 bpm. Discussed these findings are not reassuring for viable but we can not definitively determine outcome at this time. F/U 1 week with U/S 09/28/2023; US with IUP measuring 6 weeks 1 day; cardiac activity with slow heartbeat of 92 bpm. Denies any bleeding or pain. Nausea and vomiting has improved. Check progesterone level. Repeat ultrasound in 1 week for viability. Progesterone level low normal at 14. Rx Prometrium 200 mg daily sent to pharmacy. MAB on U/S 10/06/23 Hepatitis C antibody positive in blood Overview (09/28/2023): Patient may have been treated for hepatitis. Family History Medical History Relation Name Comments Breast cancer Maternal Great-Grandmother Colon cancer Neg Hx Osteoporosis Neg Hx Ovarian cancer Neg Hx Uterine cancer Neg Hx Relation Name Status Comments Maternal Great-Grandmother Alive Social History Tobacco Use Types Packs/Day Years Used Date Smoking Tobacco: Never Smokeless Tobacco: Former Tobacco Cessation:Counseling Given: Not Answered Alcohol Use Standard Drinks/Week Comments Never 0 (1 standard drink = 0.6 oz pur e alcohol) Abuse Screen Answer Date Recorded Unsafe at Home or Work/School Not on file Feels Threatened by Someone? Not on file 07/2023 Does Anyone Keep You from Co ntacting Others or Doint Things Outside the Home? Not on file 07/05/2023 Physical Sign of Abuse Present Not on file 1 Housing Stability Answer Date Recorded Current Living Arrangements Not on file 06/25 Potentially Unsafe Housing Conditions Not on rosemary e 07/05/2023 Family and Community Support Answer Delmer e Recorded Help with Day-to-Day Activities Not on file 07/05/2023 Lonely or Isolated Not on file 07/05/2023 Employment Answer Date Recorded Do you want help finding or keeping work or a ely b? Not on file 07/05/2023 Disabilities Answer Date Recorded Concentrating, Remembering, or Making Decisions Difficulty Not on file 07/05/2023 Doing Errands Independently Difficulty Not on fi le 07/05/2023 Education Answer Date Recorded Help with school or training? Not on file Preferred Language Not on file 07/05/2023 Comments Unknown Sex and Gender Information Value Date Recorded Sex Assigned at Not on file Legal Sex Female 11:05 AM EST Gender Identity Not on file Sexual Orientation Not on file Last Filed Vital Signs Vital Sign Reading Time Taken Comments Blood Pressure 122/80 12/11/2023 12:04 PM EDT Pulse - - Temperature - - Respiratory Rate 18 09/22/2023 10:00 AM EST Oxygen Saturation - - Inhaled Oxygen Concentration - - Weight 66.2 kg (146 lb) 12/11/2023 12:04 PM EDT Height 162.6 cm (5' 4.02 ) 12/11/2023 12:04 PM E DT Body Mass Index 25.05 12/11/2023 12:04 PM EDT Plan of Treatment Health Maintenance Due Date Last Done Comments Annual Gynecologic Pelvic an d Breast Exam 2002 MENINGOCOCCAL B VACCINE (1 o f 2 - Standard) 2018 HPV VACCINES (2 - 3-dose series) 11/21/2019 10/24/2019 ANNUAL PHYSICAL 09/13/2021 CHLAMYDIA SCREENING 10/26/2023 10/26/2022, 12/13/2021, 11/17/2021 TDAP/TD VACCINES (2 - Td or Tdap) 04/24/2024 04/24/2014 COVID-19 Vaccine (3 - 2023-2 5 season) 2024 08/23/2021, 07/18/2021 INFLUENZA VACCINE 06/25/2025 07/03/2020 HEPATITIS C SCREENING Completed 11/14/2021 , 11/14/2021 Pneumococcal Vaccine 0-49 Aged Out No longer eligible based on patient's age to complete this topic Procedures Procedure Name Priority Date/Time Associated Diagnosis Comments NUSWAB VG+ Routine 10/26/2022 12:03 PM EST Right groin pain from Last 3 Months or Most Recently Relevant to Health Maintenance Results * NuSwab VG+ - Swab, Cervix (10/26/2022 12:03 PM EST) Atopobium Vaginae Low - 0 Score [facility] BVAB 2 Low - 0 Score [facility] Megasphaera 1 Low - 0 Score [facility] Comment: Calculate total score by adding the 3 individual bacterial vaginosis (BV) marker scores together. Total score is interpreted as follows: Total score 0-1: Indicates the absence of BV. Total score 2: Indeterminate for BV. Additional clinical data should be evaluated to establish a diagnosis. Total score 3-6: Indicates the presence of BV. This test was developed and its performance characteristics determined by [facility]. It has not been cleared or approved by the Food and Drug Administration. Linda Albicans, GIOVANNI Negative Negative [facility] Linda Glabrata, GIOVANNI Negative Negative [facility] Trichomonas vaginosis Negative Negative [facility] Chlamydia trachomatis, GIOVANNI Negative Negative [facility] Neisseria gonorrhoeae, GIOVANNI Negative Negative [facility] Swab Cervix uteri structure / Unknown 10/26/2022 12:03 PM EST 10/26/2022 Comment: CD- [id number] Narrative [facility] - 10/31/2022 6:07 AM EST Test(s) 933805-Jonpvyc albicans, GIOVANNI; [id number]-Jtuiqei glabrata, GIOVANNI was developed and its performance characteristics determined by [facility]. It has not been cleared or approved by the Food and Drug Administration. Performed at: 01 - [address] [id number] Chemical Sales Representative: Rupa Mckeon MD, Phone: [phone] Patient Fasting: N us Lori Adams PODIATRIC FOOT AND ANKLE SPECIALIST MICROBIOLOGY - GENERAL ORDERA BLES Final Result [facility] [address] [place] [address], [facility] [address] [place] [address], from Last 3 Months or Most Recently Relevant to Health Maintenance Insurance [facility] PPO Care Teams On Air Talent Relationship Specialty Start Date End Date Oleg Hager MD [address] [facility] [address] [facility] [address] PCP - General Adolescent Medicine 10/26/22
--- OUTSIDE RECORDS SUMMARY | 2025-04-23 11:08 | XMS_ITS | Encounter Summary ---
Author Organization [facility] Address [address] [place] [address] Care Team Providers Care Clinical Product Manager Name Role Phone Oleg Hager MD Primary Care Provider [phone] Encounter Details Date Type Department Care Team (Late st Contact Info) Description 03/02/2023 Telephone [facility] OBGYN [address] [facility] [address] [place] [phone] Mar Chen MD [address] [facility] [address] [place] [address] Social History Tobacco Use Types Packs/Day Years Used Date Smoking Tobacco: Never Smokeless Tobacco: Former Alcohol Use Standard Drinks/Week Comments Never 0 (1 standard drink = 0.6 oz pur e alcohol) Comments No Sex and Gender Information Value Date Recorded Sex Assigned at Not on file Legal Sex Female 11:05 AM EST Gender Identity Not on file Sexual Orientation Not on file documented as of this encounter Plan of Treatment Not on file documented as of this encounter Visit Diagnoses Not on filedocumented in this encounter Care Teams Clinical Product Manager Relationship Specialty Start Date End Date Oleg Hager MD [address] [facility] [address] [place] [address] PCP - General Adolescent Medicine 10/26/22 documented as of this encounter
[2025-04-23 12:01] LABS: Hematocrit 37.8 % (37.0-47.0); Hemoglobin 12.9 g/dL (12.2-16.2); Immature Granulocytes % 1.7 %; Mean Corpuscular HGB Conc 34.1 g/dL (31.8-35.4); Mean Corpuscular Hemoglobin 31.4 pg (27.0-31.2); Mean Corpuscular Volume 92.0 fl (81-99); Nucleated Red Blood Cells % 0 %; Platelet Count 239 K/mm3 (142-424); Red Blood Count 4.11 M/mm3 (4.20-5.40); Red Cell Distribution Width-SD 44.6 fL; White Blood Count 15.2 K/mm3 (4.8-10.8)
[2025-04-23 12:36] LABS: Alanine Aminotransferase 11 U/L (12-78); Albumin Level 4.3 g/dl (3.5-5.0); Albumin/Globulin Ratio 1.7 (1.1-1.8); Alkaline Phosphatase 87 U/L (38-126); Anion Gap 12.4 mEq/L (5-15); Aspartate Amino Transferase 20 U/L (14-36); Bilirubin,Total 0.7 mg/dl (0.2-1.3); Blood Urea Nitrogen 8 mg/dl (7-17); Calcium 10.3 mg/dl (8.4-10.2); Carbon Dioxide 23 mmol/L (22.0-30.0); Chloride 105 mmol/L (98-107); Creatinine,Serum 0.50 mg/dl (0.52-1.04); Estimated Glomerular Filt Rate 153 ml/min (>60); GFR (African American) 185 ML/MIN (>60); Globulin 2.6 g/dL (1.3-3.2); Glucose 72 mg/dl (74-100); Potassium 4.4 mmoL/L (3.5-5.1); Sodium 136 mmol/L (136-145); Total Protein,Serum 6.9 g/dl (6.3-8.2)
== END 2025-04-23 23:59 | disposition home or self-care (01) ==
PROVIDERS: PCP Nurse Practitioner Family; Visit Provider Obstetrics & Gynecology
DX: O26.649 Intrahepatic cholestasis of pregnancy, unspecified trimester (principal); Z3A.00 Weeks of gestation of pregnancy not specified
CPT/HCPCS: 36415; 80053; 82239; 85025

== ENCOUNTER 2025-05-15 10:39 | Outpatient (CLI) | payer OTHER, SELFPAY ==
--- OUTSIDE RECORDS SUMMARY | 2025-05-15 10:41 | XMS_ITS | Encounter Summary ---
Author Organization [facility] Address [address] [place] [address] Care Team Providers Care Varnish Melter Name Role Phone Oleg Hager MD Primary Care Provider [phone] Encounter Details Date Type Department Care Team (Late st Contact Info) Description 03/02/2023 Telephone [facility] OBGYN [address] [facility] [address] [place] [phone] Mar Chen MD [address] [facility] [address] [place] [address] Social History Tobacco Use Types Packs/Day Years [...] on filedocumented in this encounter Care Teams Varnish Melter Relationship Specialty Start Date End Date Oleg Hager MD [address] [facility] [address] [place] [address] PCP - General Adolescent Medicine 10/26/22 documented as of this encounter
--- OUTSIDE RECORDS SUMMARY | 2025-05-15 10:41 | XMS_ITS | Clinical Summary ---
Author Organization [facility] Address [address] [place] [address] Care Team Providers Care Second Worker Name Role Phone Oleg Hager MD Primary Care Provider + [phone] Allergies Active Allergy Reactions Criticality Noted Date [...] developed and its performance characteristics determined by [facility]. It has not been cleared or approved by the Food and Drug Administration. Linda Albicans, GIOVANNI Negative Negative [facility] Linda Glabrata, GIOVANNI Negative Negative [facility] Trichomonas vaginosis Negative Negative [facility] Chlamydia trachomatis, GIOVANNI Negative Negative [facility] Neisseria gonorrhoeae, GIOVANNI Negative Negative [facility] Swab Cervix uteri structure / Unknown 10/26/2022 12:03 PM EST 10/26/2022 Comment: CD- [id number] N[facility]ative [facility] - 10/31/2022 6:07 AM EST Test(s) 617695-Ycogdjw albicans, GIOVANNI; 695799-Mznphvk glabrata, GIOVANNI was developed and its performance characteristics determined by [facility]. It has not been cleared or approved by the Food and Drug Administration. Performed at: 01 - [address] [id number] Spinal Surgeon: Rupa Mckeon MD, Phone: [phone] Patient Fasting: N us Lori Adams WIPING RAG WASHER MICROBIOLOGY - GENERAL ORDERA BLES Final Result [facility] [address] [place] [address], [facility] [address] [place] [address], from Last 3 Months or Most Recently Relevant to Health Maintenance Insurance [facility] PPO Care Teams Second Worker Relationship Specialty Start Date End Date Oleg Hager MD [address] [facility] [address] [place] [address] PCP - General Adolescent Medicine 10/26/22
[2025-05-15 13:12] LABS: Glucose 1 Hour 137 mg/dL (74-100)
[2025-05-15 13:16] LABS: Hematocrit 36.7 % (37.0-47.0); Hemoglobin 12.7 g/dL (12.2-16.2); Immature Granulocytes % 1.7 %; Mean Corpuscular HGB Conc 34.6 g/dL (31.8-35.4); Mean Corpuscular Hemoglobin 32.2 pg (27.0-31.2); Mean Corpuscular Volume 92.9 fl (81-99); Nucleated Red Blood Cells % 0 %; Platelet Count 226 K/mm3 (142-424); Red Blood Count 3.95 M/mm3 (4.20-5.40); Red Cell Distribution Width-SD 44.9 fL; White Blood Count 15.2 K/mm3 (4.8-10.8)
[2025-05-16 16:36] LABS: RPR W/RFX Titers Nonreactive (Nonreactive)
== END 2025-05-15 23:59 | disposition home or self-care (01) ==
LOC: LAB 10:39
PROVIDERS: PCP Internal Medicine Adolescent Medicine; Visit Provider Obstetrics & Gynecology
DX: O03.9 Complete or unspecified spontaneous abortion without complication (principal); N96 Recurrent pregnancy loss
CPT/HCPCS: 36415; 82947; 85025; 86592

== ENCOUNTER 2025-06-20 10:42 | Outpatient (CLI) | payer OTHER, SELFPAY ==
--- OUTSIDE RECORDS SUMMARY | 2025-06-20 10:44 | XMS_ITS | Encounter Summary ---
Author Organization [facility] Address [address] [place] [address] Care Team Providers Care Lang Path Therapist Name Role Phone Oleg Hager MD Primary Care Provider [phone] Encounter Details Date Type Department Care Team (Late st Contact Info) Description 03/02/2023 Telephone [facility] OBGYN [address] [facility] [address] [place] [phone] Mar Chen MD [address] [facility] [address] [place] [address] Social History Tobacco Use Types Packs/Day Years [...] on filedocumented in this encounter Care Teams Lang Path Therapist Relationship Specialty Start Date End Date Oleg Hager MD [address] [facility] [address] [place] [address] PCP - General Adolescent Medicine 10/26/22 documented as of this encounter
--- OUTSIDE RECORDS SUMMARY | 2025-06-20 10:44 | XMS_ITS | Clinical Summary ---
Author Organization [facility] Address [address] [place] [address] Care Team Providers Care Refinery Operator Assistant Name Role Phone Oleg Hager MD Primary Care Provider + [phone] Allergies Active Allergy Reactions Criticality Noted Date [...] (2 - Td or Tdap) 04/24/2024 04/24/2014 INFLUENZA VACCINE 04/25/2025 07/03/2020 HEPATITIS C SCREENING Completed 11/14/2021 , [...] developed and its performance characteristics determined by [facility]. It has not been cleared or approved by the Food and Drug Administration. Linda Albicans, GIOVANNI Negative Negative [facility] Linda Glabrata, GIOVANNI Negative Negative [facility] Trichomonas vaginosis Negative Negative [facility] Chlamydia trachomatis, GIOVANNI Negative Negative [facility] Neisseria gonorrhoeae, GIOVANNI Negative Negative [facility] Swab Cervix uteri structure / Unknown 10/26/2022 12:03 PM EST 10/26/2022 Comment:CX - [id number] Narrative [facility] - 10/31/2022 6:07 AM EST Test(s) 115187-Qochrth albicans, GIOVANNI; 654500-Apgnxhc glabrata, GIOVANNI was developed and its performance characteristics determined by [facility]. It has not been cleared or approved by the Food and Drug Administration. Performed at: 01 - [address] [id number] Video Recorder Mechanic: Rupa Mckeon MD, Phone: [phone] Patient Fasting: N us Lori Adams APRN MICROBIOLOGY - GENERAL ORDERA BLES Final Result [facility] [address] [place] [address], [place] [phone] [facility] [address] [place] [address], [place] [phone] from Last 3 Months or Most Recently Relevant to Health Maintenance Insurance [facility] BL[facility] PPO Care Teams Refinery Operator Assistant Relationship Specialty Start Date End Date Oleg Hager MD [address] [facility] [address] [place] [address] PCP - General Adolescent Medicine 10/26/22
[2025-06-20 11:08] LABS: Hematocrit 36.5 % (37.0-47.0); Hemoglobin 12.9 g/dL (12.2-16.2); Mean Corpuscular HGB Conc 35.3 g/dL (31.8-35.4); Mean Corpuscular Hemoglobin 32.2 pg (27.0-31.2); Mean Corpuscular Volume 91.0 fl (81-99); Platelet Count 218 K/mm3 (142-424); Red Blood Count 4.01 M/mm3 (4.20-5.40); White Blood Count 15.5 K/mm3 (4.8-10.8)
[2025-06-20 11:39] LABS: Alanine Aminotransferase 9 U/L (12-78); Albumin Level 3.7 g/dl (3.5-5.0); Albumin/Globulin Ratio 1.5 (1.1-1.8); Alkaline Phosphatase 116 U/L (38-126); Anion Gap 12.0 mEq/L (5-15); Aspartate Amino Transferase 17 U/L (14-36); Bilirubin,Total 1.0 mg/dl (0.2-1.3); Blood Urea Nitrogen 3 mg/dl (7-17); Calcium 9.1 mg/dl (8.4-10.2); Carbon Dioxide 20 mmol/L (22.0-30.0); Chloride 105 mmol/L (98-107); Creatinine,Serum 0.40 mg/dl (0.52-1.04); Estimated Glomerular Filt Rate 198 ml/min (>60); GFR (African American) 239 ML/MIN (>60); Globulin 2.5 g/dL (1.3-3.2); Glucose 84 mg/dl (74-100); Potassium 4.0 mmoL/L (3.5-5.1); Sodium 133 mmol/L (136-145); Total Protein,Serum 6.2 g/dl (6.3-8.2); Uric Acid 3.7 mg/dl (2.5-6.2)
[2025-06-20 11:42] LABS: RBC Morphology Normal; Total Cells Counted 100
== END 2025-06-20 23:59 | disposition home or self-care (01) ==
LOC: LAB 10:43
PROVIDERS: PCP Internal Medicine Adolescent Medicine; Visit Provider Obstetrics & Gynecology
DX: O16.3 Unspecified maternal hypertension, third trimester (principal); O03.9 Complete or unspecified spontaneous abortion without complication; Z3A.00 Weeks of gestation of pregnancy not specified
CPT/HCPCS: 36415; 80053; 82570; 83615; 84156; 84550; 84702; 85007; 85014; 85018; 85048; 85049

== ENCOUNTER 2025-06-23 12:14 | Outpatient (CLI) | payer OTHER, SELFPAY ==
[2025-06-23 15:52] LABS: Coronavirus 19, PCR Not Detected (NotDetected); Influenza A, PCR Not Detected (NotDetected); Influenza B, PCR Not Detected (NotDetected)
--- OUTSIDE RECORDS SUMMARY | 2025-06-24 10:46 | XMS_ITS | Clinical Summary ---
Author Organization [facility] Address [address] [place] [address] Care Team Providers Care Draw Fire Operator Name Role Phone Oleg Hager MD Primary Care Provider + [phone] Allergies Active Allergy Reactions Criticality Noted Date [...] developed and its performance characteristics determined by [facility]. It has not been cleared or approved by the Food and Drug Administration. Linda Albicans, GIOVANNI Negative Negative [facility] Linda Glabrata, GIOVANNI Negative Negative [facility] Trichomonas vaginosis Negative Negative [facility] Chlamydia trachomatis, GIOVANNI Negative Negative [facility] Neisseria gonorrhoeae, GIOVANNI Negative Negative [facility] Swab Cervix uteri structure / Unknown 10/26/2022 12:03 PM EST 10/26/2022 Comment:CX - [id number] Narrative [facility] - 10/31/2022 6:07 AM EST Test(s) 006056-Upfkoib albicans, GIOVANNI; 702594-Efxblpw glabrata, GIOVANNI was developed and its performance characteristics determined by [facility]. It has not been cleared or approved by the Food and Drug Administration. Performed at: 01 - [address] [id number] Motorcoach Driver: Rupa Mckeon MD, Phone: [phone] Patient Fasting: N us Lori Adams APRN MICROBIOLOGY - GENERAL ORDERA BLES Final Result [facility] [address] [place] [address], [place] [phone] [facility] [address] [place] [address], [place] [phone] from Last 3 Months or Most Recently Relevant to Health Maintenance Insurance [facility] BLUE [facility] PPO Care Teams Draw Fire Operator Relationship Specialty Start Date End Date Oleg Hager MD [address] [facility] [address] [place] [address] PCP - General Adolescent Medicine 10/26/22
--- OUTSIDE RECORDS SUMMARY | 2025-06-24 10:46 | XMS_ITS | Encounter Summary ---
Author Organization [facility] Address [address] [place] [address] Care Team Providers Care Med Surg Rn Name Role Phone Oleg Hager MD Primary Care Provider [phone] Encounter Details Date Type Department Care Team (Late st Contact Info) Description 03/02/2023 Telephone [facility] OBGYN [address] [facility] [address] [place] [phone] Mar Chen MD [address] [facility] [address] [place] [address] Social History Tobacco Use Types Packs/Day Years [...] on filedocumented in this encounter Care Teams Med Surg Rn Relationship Specialty Start Date End Date Oleg Hager MD [address] [facility] [address] [place] [address] PCP - General Adolescent Medicine 10/26/22 documented as of this encounter
== END 2025-06-23 23:59 ==
LOC: LAB.DROPOF 06-24 10:41
PROVIDERS: PCP Student in an Organized Health Care Education/Training Program; Visit Provider Student in an Organized Health Care Education/Training Program
DX: R50.9 Fever, unspecified (principal)
CPT/HCPCS: 87631

== ENCOUNTER 2025-07-03 11:25 | Outpatient (CLI) | payer OTHER, SELFPAY ==
[2025-07-03 11:46] LABS: Hematocrit 34.7 % (37.0-47.0); Hemoglobin 12.4 g/dL (12.2-16.2); Immature Granulocytes % 2.9 %; Mean Corpuscular HGB Conc 35.7 g/dL (31.8-35.4); Mean Corpuscular Hemoglobin 32.3 pg (27.0-31.2); Mean Corpuscular Volume 90.4 fl (81-99); Nucleated Red Blood Cells % 0 %; Platelet Count 219 K/mm3 (142-424); Red Blood Count 3.84 M/mm3 (4.20-5.40); Red Cell Distribution Width-SD 41.1 fL; White Blood Count 15.1 K/mm3 (4.8-10.8)
[2025-07-03 12:00] LABS: Fibrinogen 200 mg/dL (229.9-363.5)
[2025-07-03 12:49] LABS: Activated Partial Thrombo Time 25.4 seconds (22.8-30.6); INR 0.94 (0.9-1.1); Prothrombin Time 10.5 seconds (10.1-12.5)
[2025-07-03 13:24] LABS: Alanine Aminotransferase 11 U/L (12-78); Albumin Level 3.5 g/dl (3.5-5.0); Albumin/Globulin Ratio 1.3 (1.1-1.8); Alkaline Phosphatase 150 U/L (38-126); Anion Gap 13.9 mEq/L (5-15); Aspartate Amino Transferase 17 U/L (14-36); Bilirubin,Total 1.1 mg/dl (0.2-1.3); Blood Urea Nitrogen 4 mg/dl (7-17); Calcium 9.2 mg/dl (8.4-10.2); Carbon Dioxide 20 mmol/L (22.0-30.0); Chloride 105 mmol/L (98-107); Creatinine,Serum 0.50 mg/dl (0.52-1.04); Estimated Glomerular Filt Rate 153 ml/min (>60); GFR (African American) 185 ML/MIN (>60); Globulin 2.6 g/dL (1.3-3.2); Glucose 76 mg/dl (74-100); Potassium 3.9 mmoL/L (3.5-5.1); Sodium 135 mmol/L (136-145); Total Protein,Serum 6.1 g/dl (6.3-8.2); Uric Acid 3.8 mg/dl (2.5-6.2)
== END 2025-07-03 23:59 | disposition home or self-care (01) ==
LOC: LAB 11:26
PROVIDERS: PCP Internal Medicine Adolescent Medicine; Visit Provider Obstetrics & Gynecology
DX: O16.3 Unspecified maternal hypertension, third trimester (principal); Z3A.00 Weeks of gestation of pregnancy not specified
CPT/HCPCS: 36415; 80053; 84550; 85025; 85384; 85610; 85730

== ENCOUNTER 2025-07-05 11:04 | Outpatient (CLI) | payer OTHER, SELFPAY ==
--- OUTSIDE RECORDS SUMMARY | 2019-05-30 06:15 | XMS_ITS | Continuity of Care Document ---
Author Organization [facility] [employer] Address [address] [place] [address] Phone Care Team Providers Care Consumer Marketing Analyst Name Role Phone Gray Melecio BAUM Unavailable [...] Diagnoses Date Provider Providers Copied on Encounter [facility] [employer], [address], [place], [place], [address], tel:[phone] [facility] DEN-Encounte r for dental exam and cleaning w/o abnormal findingsDEN- Encounter for dental exam and cleaning w abnormal findings 9 Marina Majano. [address], [place], [place], [address], [place]. tel:[phone] Referring Provider: Melecio Corrales, [address], [place], [address] . tel:[phone] [facility] [employer] [facility], [address], [place], [place], [address], tel:[phone] [facility] No Information 9 Toñito Dwyer. [address], [place], [place], [address], [place]. tel:[phone] Referring Provider: Skyla Sibley, [address], [place], [address] . tel:[phone] [facility] [employer] [place], [address], [place], [place], [address], tel:[phone] [facility] No Information 7 Lacie Ybarra. [address], [place], [place], [address], [place]. tel:[phone] Referring Provider: Tate Lara, [address], [place], [address] . tel:[phone] [facility], [address], [place], [place], [address], [place] tel:[phone] [place] [address] No Information 7 Lacie Ybarra. [address], [place], [place], [address], [place]. tel:[phone] Referring Provider: Tate Lara, [address], [place], [address] . tel:[phone] [facility], [address], [place], [place], [address], [place] tel:[phone] [place] [address] No Information 7 Lacie Ybarra. [address], [place], [place], [address], [place]. tel:[phone] Referring Provider: Tate Lara, [address], [place], [address] . tel:[phone] [facility], [address], [place], [place], [address], [place] tel:[phone] [place] [address] No Information 5 Lacie Ybarra. [address], [place], [place], [address], [place]. tel:[phone] Referring Provider: Tate Lara, [address], [place], [address] . tel:[phone] [facility], [address], [place], [place], [address], [place] tel:[phone] [place] [address] No Information 5 Bhavik Gusman. [address], [place], [place], [address], [place]. tel:[phone] Referring Provider: Naseem Machado, [address], [place], [address] . tel:[phone] [facility], [address], [place], [place], [address], [place] tel:[phone] [facility] Dental examination 3 Bhavik Gusman. [address], [place], [place], [address], [place]. tel:[phone] Referring Provider: Naseem Machado, [address], [place], [address] . tel:[phone] [facility] [facility], [address], [place], [place], [address], [place] tel:[phone] [facility] Dental examination 3 Lacie Ybarra. [address], [place], [place], [address], [place]. tel:[phone] Referring Provider: Tate Lara, [address], [place], [address] . tel:[phone] [facility], [address], [place], [place], [address], [place] tel:[phone] [facility] Dental examination 3 No Information [facility] [facility], [address], [place], [place], [address], [place] tel:[phone] [facility] Dental examination 3 Bhavik Gusman. [address], [place], [place], [address], [place]. tel:[phone] Referring Provider: Naseem Machado, [address], [place], [address] . tel:[phone] [facility], [address], [place], [place], [address], [place] tel:[phone] [facility] Dental examination 3 Lacie Ybarra. [address], [place], [place], [address], [place]. tel:[phone] Referring Provider: Tate Lara, [address], [place], [address] . tel:[phone] [facility] [facility], [address], [place], [place], [address], [place] tel:[phone] [facility] Dental examination 2 Lacie Ybarra. [address], [place], [place], [address], [place]. tel:[phone] Referring Provider: Tate Lara, [address], [place], [address] . tel:[phone] [facility] [facility], [address], [place], [place], [address], [place] tel:[phone] [facility] No Information 2 Bhavik Gusman. [address], [place], [place], [address], [place]. tel:[phone] Referring Provider: Naseem Machado, [address], [place], [address] . tel:[phone] [facility] [facility], [address], [place], [place], [address], [place] tel:[phone] [facility] No Information 2 Lacie Ybarra. [address], [place], [place], [address], [place]. tel:[phone] Referring Provider: Tate Lara, [address], [place], [address] . tel:[phone] [facility], [address], [place], [place], [address], [place] tel:[phone] [facility] No Information 2 Bhavik Gusman. [address], [place], [address], [place]. tel:[phone] Referring Provider: Naseem Machado, [address], [place], [address] . tel:[phone] [facility], [address], [place], [place], [address], tel:[phone] [facility] Dental examination 2 No Information [facility], [address], [place], [place], [address], tel:[phone] [facility] Dental examination 2 No Information [facility], [address], [place], [place], [address], tel:[phone] [facility] Dental examination 1 Lacie Ybarra. [address], [place], [address], . tel:[phone] Referring Provider: Tate Lara, [address], [place], [address] . tel:[phone] [facility], [address], [place], [place], [address], tel:[phone] [facility] Dental examination 1 No Information [facility], [address], [place], [place], [address], tel:[phone] [facility] Dental examination 1 No Information Family History Family Member Type Diagnosis Age At Onset No Information Payers Payer name Insurance type Covered constitution party ID Sheng dong(s) D [employer] CI [id number] Social History Type Description Quantity Date Captured [...]
--- OUTSIDE RECORDS SUMMARY | 2025-07-05 11:06 | XMS_ITS | Encounter Summary ---
Author Organization [facility] Address [address] [place] [address] Care Team Providers Care Revival Clerk Name Role Phone Oleg Hager MD Primary Care Provider [phone] Encounter Details Date Type Department Care Team (Late st Contact Info) Description 03/02/2023 Telephone [facility] OBGYN [address] [facility] [address] [place] [phone] Mar Chen MD [address] [facility] [address] [place] [address] Social History Tobacco Use Types Packs/Day Years [...] on filedocumented in this encounter Care Teams Revival Clerk Relationship Specialty Start Date End Date Oleg Hager MD [address] [facility] [address] [place] [address] PCP - General Adolescent Medicine 10/26/22 documented as of this encounter
--- OUTSIDE RECORDS SUMMARY | 2025-07-05 11:06 | XMS_ITS | Clinical Summary ---
Author Organization [facility] Address [address] [place] [address] Care Team Providers Care Aluminum Siding Mechanic Name Role Phone Oleg Hager MD Primary Care Provider + [phone] Allergies Active Allergy Reactions Criticality Noted Date [...] developed and its performance characteristics determined by [email or web address]. It has not been cleared or approved by the Food and Drug Administration. Linda Albicans, GIOVANNI Negative Negative [facility] Linda Glabrata, GIOVANNI Negative Negative [facility] Trichomonas vaginosis Negative Negative [facility] Chlamydia trachomatis, GIOVANNI Negative Negative [facility] Neisseria gonorrhoeae, GIOVANNI Negative Negative [facility] Swab Cervix uteri structure / Unknown 10/26/2022 12:03 PM EST 10/26/2022 Comment:CX - [id number] Narrative [facility] - 10/31/2022 6:07 AM EST Test(s) 657754-Zsxnwnu albicans, GIOVANNI; 069630-Windioc glabrata, GIOVANNI was developed and its performance characteristics determined by [facility]. It has not been cleared or approved by the Food and Drug Administration. Performed at: 01 - [address] [id number] Operational Risk Analyst: Rupa Mckeon MD, Phone: [phone] Patient Fasting: N us Lori Adams APRN MICROBIOLOGY - GENERAL ORDERA BLES Final Result [facility] [address] [place] [address], [place] [phone] [facility] [address] [place] [address], [place] [phone] from Last 3 Months or Most Recently Relevant to Health Maintenance Insurance [facility]ATRICE [facility] BLUE [facility] PPO Care Teams Aluminum Siding Mechanic Relationship Specialty Start Date End Date Oleg Hager MD [address]10 [facility] [address] [place] [address] PCP - General Adolescent Medicine 10/26/22
[2025-07-05 12:06] LABS: Total Volume,Urine 3250 mL (600-1600)
[2025-07-05 12:14] LABS: Total Protein 24 Hour,Urine 390 mg/24 hr (40-90)
== END 2025-07-05 23:59 | disposition home or self-care (01) ==
LOC: LAB 11:05
PROVIDERS: PCP Internal Medicine Adolescent Medicine; Visit Provider Obstetrics & Gynecology
DX: O16.3 Unspecified maternal hypertension, third trimester (principal); Z3A.00 Weeks of gestation of pregnancy not specified
CPT/HCPCS: 82570; 84155

== ENCOUNTER 2025-07-09 11:45 | Outpatient (CLI) | payer OTHER, SELFPAY ==
--- OUTSIDE RECORDS SUMMARY | 2025-07-10 09:25 | XMS_ITS | Clinical Summary ---
Author Organization [facility] Address [address] [place] [address] Care Team Providers Care Railroad Car Loader Name Role Phone Oleg Hager MD Primary Care Provider + [phone] Allergies Active Allergy Reactions Criticality Noted Date [...] developed and its performance characteristics determined by [facility]. It has not been cleared or approved by the Food and Drug Administration. Linda Albicans, GIOVANNI Negative Negative [facility] Linda Glabrata, GIOVANNI Negative Negative [facility] Trichomonas vaginosis Negative Negative [facility] Chlamydia trachomatis, GIOVANNI Negative Negative [facility] Neisseria gonorrhoeae, GIOVANNI Negative Negative [facility] Swab Cervix uteri structure / Unknown 10/26/2022 12:03 PM EST 10/26/2022 Comment:CX - [id number] [facility]ative [facility] - 10/31/2022 6:07 AM EST Test(s) 563868-Vkocxds albicans, GIOVANNI; 915883-Pficpoh glabrata, GIOVANNI was developed and its performance characteristics determined by [facility]. It has not been cleared or approved by the Food and Drug Administration. Performed at: 01 - [address] [id number] Intensive Care Unit Registered Nurse: Rupa Mckeon MD, Phone: [phone] Patient Fasting: N us Lori Adams APRN MICROBIOLOGY - GENERAL ORDERA BLES Final Result [facility] [address] [place] [address], [place] [phone] [facility] [address] [place] [address], [place] [phone] from Last 3 Months or Most Recently Relevant to Health Maintenance Insurance BEATRICE [facility] BLUE [facility] PPO Care Teams Railroad Car Loader Relationship Specialty Start Date End Date Oleg Hager MD 1210 [facility] [address] [place] [address] PCP - General Adolescent Medicine 10/26/22
--- OUTSIDE RECORDS SUMMARY | 2025-07-10 09:25 | XMS_ITS | Encounter Summary ---
Author Organization [facility] Address [address] [place] [address] Care Team Providers Care Director Of Healthcare Systems Name Role Phone Oleg Hager MD Primary Care Provider [phone] Encounter Details Date Type Department Care Team (Late st Contact Info) Description 03/02/2023 Telephone [facility] OBGYN 1700 [facility] [address] [place] [phone] Mar Chen MD 1700 [facility] [address] [place] [address] Social History Tobacco Use Types Packs/Day Years [...] on filedocumented in this encounter Care Teams Director Of Healthcare Systems Relationship Specialty Start Date End Date Oleg Hager MD 1210 [facility] [address] [place] [address] PCP - General Adolescent Medicine 10/26/22 documented as of this encounter
== END 2025-07-09 23:59 | disposition home or self-care (01) ==
LOC: LAB.DROPOF 07-10 09:18
PROVIDERS: PCP Obstetrics & Gynecology; Visit Provider Obstetrics & Gynecology
DX: O11.3 Pre-existing hypertension with pre-eclampsia, third trimester (principal); Z3A.00 Weeks of gestation of pregnancy not specified
CPT/HCPCS: 86403

== ENCOUNTER 2025-07-11 13:40 | Outpatient (CLI) | payer OTHER, SELFPAY ==
--- NOTE | 2025-07-11 13:45 | US_ITS ---
PROCEDURE: US OB BIOPHYSICAL PROFILE CLINICAL INDICATION: Elevalted Blood Pressure COMPARISON: US US OB <= 14 WEEKS FETUS from 03/22/2024 US US OB TRANSVAGINAL from 03/31/2025 US US OB /MATERNAL DETAIL from 03/31/2025 FINDINGS: Transabdominal sonographic images of the uterus were obtained. From her established due date she is 35weeks 1day. The following parameters are obtained: Viable Fetus in the cephalic presentation with an anterior placenta grade 2. Average ultrasound age is 36weeks 3days Estimated weight 2,830g, 6 lb 4 oz The cervix measures 3.76 cm in length. Measurements: heart Rate = 127bpm BPD = 36weeks 1day, 77 percentile HC = 37weeks 2days, 69 percentile AC = 35weeks 5days, 73 percentile FL = 36weeks 2days, 72 percentile HC/AC is 1.03 FL/BPD is 0.79 FL/AC is 0.22 73 percentile Amniotic fluid index: 18.29cm, MVP 5.62 cm Qualitative AFV:2 Breathing movements: 2 Gross Body Movements: 2 Tone: 2 Biophysical profile score: 8 No obvious anomalies evident.Kidneys, stomach, bladder, four-chamber heart, three-vessel cord appear normal. IMPRESSION: 1. Viable fetus in the cephalic presentation with an anterior placenta grade 2. 2. The fluid is within normal limits with an amniotic fluid index 18.29 cm, MVP 5.62 cm. 3. Biophysical profile is 8/8 with good breathing movement and movement seen. 4. There has been good interval growth with the fetus currently 73rd percentile. 5. Limited anatomical scan appears normal. Dictated by: Anastacio Fuentes MD 07/12/2025 08:43 Anastacio Fuentes MD in OV 07/12/2025 08:43
--- OUTSIDE RECORDS SUMMARY | 2025-07-11 13:46 | XMS_ITS | Encounter Summary ---
Author Organization [facility] Address [address] [place] [address] Care Team Providers Care Geological Specialist Name Role Phone Oleg Hager MD Primary Care Provider [phone] Encounter Details Date Type Department Care Team (Late st Contact Info) Description 03/02/2023 Telephone [facility] OBGYN 1700 [facility] [address] [place] [phone] Mar Chen MD 1700 [facility] [address] [place] [address] Social History Tobacco Use Types Packs/Day Years [...] on filedocumented in this encounter Care Teams Geological Specialist Relationship Specialty Start Date End Date Oleg Hager MD 1210 [facility] [address] [place] [address] PCP - General Adolescent Medicine 10/26/22 documented as of this encounter
--- OUTSIDE RECORDS SUMMARY | 2025-07-11 13:46 | XMS_ITS | Clinical Summary ---
Author Organization [facility] Address [address] [place] [address] Care Team Providers Care Warehouse Clerk Name Role Phone Oleg Hager MD Primary Care Provider + [phone] Allergies Active Allergy Reactions Criticality Noted Date [...] developed and its performance characteristics determined by [employer]. It has not been cleared or approved by the Food and Drug Administration. Linda Albicans, GIOVANNI Negative Negative [facility] Linda Glabrata, GIOVANNI Negative Negative [facility] Trichomonas vaginosis Negative Negative [facility] Chlamydia trachomatis, GIOVANNI Negative Negative [facility] Neisseria gonorrhoeae, GIOVANNI Negative Negative [facility] Swab Cervix uteri structure / Unknown 10/26/2022 12:03 PM EST 10/26/2022 Comment:CX - [id number] Narrative [facility] - 10/31/2022 6:07 AM EST Test(s) [id number]-Kmebumh albicans, GIOVANNI; 981607-Kmtlpqg glabrata, GIOVANNI was developed and its performance characteristics determined by [facility]. It has not been cleared or approved by the Food and Drug Administration. Performed at: 01 - [address] [id number] Chief Scientist: Rupa Mckeon MD, Phone: [phone] Patient Fasting: N us Lori Adams APRN MICROBIOLOGY - GENERAL ORDERA BLES Final Result [facility] [address] [place] [address], [place] [phone] [facility] [address] [place] [address], [place] [phone] from Last 3 Months or Most Recently Relevant to Health Maintenance Insurance BEATRICE [facility] BLUE [facility] PPO Care Teams Warehouse Clerk Relationship Specialty Start Date End Date Oleg Hager MD [address] [facility] [address] [place] [address] PCP - General Adolescent Medicine 10/26/22
== END 2025-07-11 23:59 | disposition home or self-care (01) ==
LOC: RAD 13:41
PROVIDERS: PCP Internal Medicine Adolescent Medicine; Visit Provider Obstetrics & Gynecology
DX: O26.23 Pregnancy care for patient with recurrent pregnancy loss, third trimester (principal); O14.93 Unspecified pre-eclampsia, third trimester; O16.3 Unspecified maternal hypertension, third trimester; Z3A.35 35 weeks gestation of pregnancy
CPT/HCPCS: 76816; 76819

== ENCOUNTER 2025-07-18 13:41 | Outpatient (CLI) | payer OTHER, SELFPAY ==
--- OUTSIDE RECORDS SUMMARY | 2025-07-18 13:43 | XMS_ITS | Encounter Summary ---
Author Organization [facility] Address [address] [place] [address] Care Team Providers Care Project Coach Name Role Phone Oleg Hager MD Primary Care Provider [phone] Encounter Details Date Type Department Care Team (Late st Contact Info) Description 03/02/2023 Telephone [facility] OBGYN 1700 [facility] [address] [place] [phone] Mar Chen MD 1700 [facility] [address] [place] [address] Social History Tobacco Use Types Packs/Day Years [...] on filedocumented in this encounter Care Teams Project Coach Relationship Specialty Start Date End Date Oleg Hager MD 1210 [facility] [address] [place] [address] PCP - General Adolescent Medicine 10/26/22 documented as of this encounter
--- OUTSIDE RECORDS SUMMARY | 2025-07-18 13:43 | XMS_ITS | Clinical Summary ---
Author Organization [facility] Address [address] [place] [address] Care Team Providers Care Program Director Name Role Phone Oleg Hager MD Primary Care Provider + [phone] Allergies Active Allergy Reactions Criticality Noted Date [...] developed and its performance characteristics determined by [employer]. It has not been cleared or approved by the Food and Drug Administration. Linda Albicans, GIOVANNI Negative Negative [facility] Linda Glabrata, GIOVANNI Negative Negative [facility] Trichomonas vaginosis Negative Negative [facility] Chlamydia trachomatis, GIOVANNI Negative Negative [facility] Neisseria gonorrhoeae, GIOVANNI Negative Negative [facility] Swab Cervix uteri structure / Unknown 10/26/2022 12:03 PM EST 10/26/2022 Comment:CX - [id number] [facility]ative [facility] - 10/31/2022 6:07 AM EST Test(s) [id number]-Cgjbgqi albicans, GIOVANNI; 134249-Reizijh glabrata, GIOVANNI was developed and its performance characteristics determined by [facility]. It has not been cleared or approved by the Food and Drug Administration. Performed at: 01 - [address] [id number] Instrument Specialist: Rupa Mckeon MD, Phone: [phone] Patient Fasting: N us Lori Adams APRN MICROBIOLOGY - GENERAL ORDERA BLES Final Result [facility] [address] [place] [address], [place] [phone] [facility] [address] [place] [address], [place] [phone] from Last 3 Months or Most Recently Relevant to Health Maintenance Insurance [facility]ATRICE [facility] BLUE [facility] PPO Care Teams Program Director Relationship Specialty Start Date End Date Oleg Hager MD 1210 [facility] [address] [place] [address] PCP - General Adolescent Medicine 10/26/22
--- NOTE | 2025-07-18 13:45 | US_ITS ---
PROCEDURE: US OB BIOPHYSICAL PROFILE CLINICAL INDICATION: Elevated Blood Pressure in COMPARISON: US US OB TRANSVAGINAL from 03/31/2025 US US OB /MATERNAL DETAIL from 03/31/2025 US US OB BIOPHYSICAL PROFILE from 07/11/2025 FINDINGS: Transabdominal sonographic images of the uterus were obtained. From her established due date she is 36weeks 1day. The following parameters are obtained: Viable Fetus in the cephalic presentation with an anterior placenta grade 2. The cervix measures 3.57 cm Measurements: heart Rate = 155bpm Amniotic fluid index: 15.29cm, MVP 7.33 cm Qualitative AFV:2 Breathing movements: 2 Gross Body Movements: 2 Tone: 2 Biophysical profile score: 8 No obvious anomalies evident.Kidneys, stomach, bladder, four-chamber heart, three-vessel cord appear normal. IMPRESSION: 1. Viable fetus in the cephalic presentation with an anterior placenta grade 2. 2. The fluid is within normal limits with an amniotic fluid index 15.29 cm, MVP 7.33 cm. 3. Biophysical profile is 8/8 with good breathing movement and movement seen. 4. Limited anatomical scan appears normal. Dictated by: Anastacio Fuentes MD 07/19/2025 09:11 Anastacio Fuentes MD in OV 07/19/2025 09:11
[2025-07-18 15:36] LABS: Hematocrit 35.5 % (37.0-47.0); Hemoglobin 12.4 g/dL (12.2-16.2); Mean Corpuscular HGB Conc 34.9 g/dL (31.8-35.4); Mean Corpuscular Hemoglobin 32.0 pg (27.0-31.2); Mean Corpuscular Volume 91.7 fl (81-99); Platelet Count 224 K/mm3 (142-424); Red Blood Count 3.87 M/mm3 (4.20-5.40); White Blood Count 12.6 K/mm3 (4.8-10.8)
[2025-07-18 15:40] LABS: Albumin Level 3.6 g/dl (3.5-5.0); Chloride 104 mmol/L (98-107); Potassium 3.9 mmoL/L (3.5-5.1); Sodium 132 mmol/L (136-145)
[2025-07-18 15:43] LABS: Alanine Aminotransferase 11 U/L (12-78); Albumin/Globulin Ratio 1.3 (1.1-1.8); Alkaline Phosphatase 151 U/L (38-126); Anion Gap 7.9 mEq/L (5-15); Aspartate Amino Transferase 20 U/L (14-36); Bilirubin,Total 1.2 mg/dl (0.2-1.3); Blood Urea Nitrogen 4 mg/dl (7-17); Calcium 8.9 mg/dl (8.4-10.2); Carbon Dioxide 24 mmol/L (22.0-30.0); Creatinine,Serum 0.40 mg/dl (0.52-1.04); Estimated Glomerular Filt Rate 198 ml/min (>60); GFR (African American) 239 ML/MIN (>60); Globulin 2.7 g/dL (1.3-3.2); Glucose 71 mg/dl (74-100); Total Protein,Serum 6.3 g/dl (6.3-8.2)
[2025-07-18 16:06] LABS: Total Cells Counted 100
[2025-07-18 16:07] LABS: Anisocytosis 1+; Basophilic Stippling 1+; Macrocytosis 1+; Microcytosis 1+; Poikilocytosis 1+; Polychromasia 1+
[2025-07-18 16:09] LABS: Ovalocytes 1+; Target Cells 1+
== END 2025-07-18 23:59 | disposition home or self-care (01) ==
LOC: RAD 13:41
PROVIDERS: PCP Internal Medicine Adolescent Medicine; Visit Provider Obstetrics & Gynecology
DX: O26.23 Pregnancy care for patient with recurrent pregnancy loss, third trimester; Z3A.36 36 weeks gestation of pregnancy; O11.3 Pre-existing hypertension with pre-eclampsia, third trimester
CPT/HCPCS: 36415; 76819; 80053; 85007; 85014; 85018; 85048; 85049

== ENCOUNTER 2025-07-21 11:27 | Outpatient (CLI) | payer OTHER, SELFPAY ==
--- OUTSIDE RECORDS SUMMARY | 2025-07-21 11:40 | XMS_ITS | Encounter Summary ---
Author Organization [facility] Address [address] [place] [address] Care Team Providers Care Hoop Riveter Name Role Phone Oleg Hager MD Primary Care Provider [phone] Encounter Details Date Type Department Care Team (Late st Contact Info) Description 03/02/[address] [facility] OBGYN 1700 [facility] [address] [place] [phone] Mar Chen MD 1700 [facility] [address] [place] [address] Social History Tobacco Use Types Packs/Day Years [...] on filedocumented in this encounter Care Teams Hoop Riveter Relationship Specialty Start Date End Date Oleg Hager MD 1210 [facility] [address] [place] [address] PCP - General Adolescent Medicine 10/26/22 documented as of this encounter
--- OUTSIDE RECORDS SUMMARY | 2025-07-21 11:40 | XMS_ITS | Clinical Summary ---
Author Organization [facility] Address [address] [place] [address] Care Team Providers Care Baker Operator Automatic Name Role Phone Oleg Hager MD Primary Care Provider + [phone] Allergies Active Allergy Reactions Criticality Noted Date [...] developed and its performance characteristics determined by [employer] It has not been cleared or approved by the Food and Drug Administration. Linda Albicans, GIOVANNI Negative Negative [facility] Linda Glabrata, GIOVANNI Negative Negative [facility] Trichomonas vaginosis Negative Negative [facility] Chlamydia trachomatis, GIOVANNI Negative Negative [facility] Neisseria gonorrhoeae, GIOVANNI Negative Negative [facility] Swab Cervix uteri structure / Unknown 10/26/2022 12:03 PM EST 10/26/2022 Comment:CX - [id number] N[facility]ative [facility] - 10/31/2022 6:07 AM EST Test(s) [id number]-Vvjtbnh albicans, GIOVANNI; 829141-Vkfsrnm glabrata, GIOVANNI was developed and its performance characteristics determined by [facility]. It has not been cleared or approved by the Food and Drug Administration. Performed at: 01 - [address] [id number] Air Traffic Control Manager: Rupa Mckeon MD, Phone: [phone] Patient Fasting: N us Lori Adams APRN MICROBIOLOGY - GENERAL ORDERA BLES Final Result [facility] [address] [place] [address], [place] [phone] [facility] [address] [place] [address], [place] [phone] from Last 3 Months or Most Recently Relevant to Health Maintenance Insurance BEATRICE [facility] BLUE [facility] PPO Care Teams Baker Operator Automatic Relationship Specialty Start Date End Date Oleg Hager MD [address]10 [facility] [address] [place] [address] PCP - General Adolescent Medicine 10/26/22
[2025-07-21 12:09] VITALS: BP 130/90; PULSE 110; RESP 18; TEMP 36.7; O2SAT 95; BMI 30.2
[2025-07-21 12:15] VITALS: BP 133/83
[2025-07-21 12:19] LABS: Hematocrit 34.9 % (37.0-47.0); Hemoglobin 12.3 g/dL (12.2-16.2); Immature Granulocytes % 1.5 %; Mean Corpuscular HGB Conc 35.2 g/dL (31.8-35.4); Mean Corpuscular Hemoglobin 31.7 pg (27.0-31.2); Mean Corpuscular Volume 89.9 fl (81-99); Nucleated Red Blood Cells % 0 %; Platelet Count 222 K/mm3 (142-424); Red Blood Count 3.88 M/mm3 (4.20-5.40); Red Cell Distribution Width-SD 42.4 fL; White Blood Count 13.1 K/mm3 (4.8-10.8)
[2025-07-21 12:22] LABS: Chloride 107 mmol/L (98-107); Sodium 131 mmol/L (136-145)
[2025-07-21 12:23] LABS: Potassium 3.4 mmoL/L (3.5-5.1)
[2025-07-21 12:25] LABS: Alanine Aminotransferase 12 U/L (12-78); Anion Gap 7.4 mEq/L (5-15); Aspartate Amino Transferase 19 U/L (14-36); Blood Urea Nitrogen 4 mg/dl (7-17); Carbon Dioxide 20 mmol/L (22.0-30.0); Creatinine Clearance Estimated 285 mL/min (50-200); Creatinine,Serum 0.40 mg/dl (0.52-1.04); Estimated Glomerular Filt Rate 198 ml/min (>60); GFR (African American) 239 ML/MIN (>60)
[2025-07-21 12:26] LABS: Calcium 8.6 mg/dl (8.4-10.2); Glucose 86 mg/dl (74-100); Uric Acid 3.4 mg/dl (2.5-6.2)
[2025-07-21 12:30] VITALS: BP 129/89
[2025-07-21 14:17] LABS: Activated Partial Thrombo Time 25.9 seconds (22.8-30.6); Fibrinogen 590 mg/dL (229.9-363.5); INR 0.90 (0.9-1.1); Prothrombin Time 10.1 seconds (10.1-12.5)
== END 2025-07-21 13:00 | disposition home or self-care (01) ==
LOC: OBOUT 11:28 → OB 11:29
PROVIDERS: PCP Internal Medicine Adolescent Medicine; Visit Provider Nurse Practitioner Obstetrics & Gynecology
DX: O99.891 Other specified diseases and conditions complicating pregnancy (principal); R03.0 Elevated blood-pressure reading, without diagnosis of hypertension; Z3A.36 36 weeks gestation of pregnancy
CPT/HCPCS: 36415; 59025; 80048; 84450; 84460; 84550; 85025; 85384; 85610; 85730; 99212; G0463

== ENCOUNTER 2025-07-23 14:52 | Inpatient (IN) | payer OTHER, SELFPAY ==
--- OUTSIDE RECORDS SUMMARY | 2019-05-30 06:15 | XMS_ITS | Continuity of Care Document ---
Author Organization [facility] [employer] Address [address] [place] [address] Phone Care Team Providers Care Physician Office Specialist Name Role Phone Gray Melecio BAUM Unavailable [...] Diagnoses Date Provider Providers Copied on Encounter [facility] [employer], [address], [place], [place], [address], tel:[phone] [facility] DEN-Encounte r for dental exam and cleaning w/o abnormal findingsDEN- Encounter for dental exam and cleaning w abnormal findings 9 Marina Majano. [address], [place], [place], [address], [place]. tel:[phone] Referring Provider: Melecio Corrales, [address], [place], [address] . tel:[phone] [facility] [employer], [address], [place], [place], [address], tel:[phone] [facility] No Information 9 Toñito Dwyer. [address], [place], [place], [address], [place]. tel:[phone] Referring Provider: Skyla Sibley, [address], [place], [address] . tel:[phone] [facility] [employer], [address], [place], [place], [address], tel:[phone] [facility] No Information 7 Lacie Ybarra. [address], [place], [place], [address], [place]. tel:[phone] Referring Provider: Tate Lara, [address], [place], [address] . tel:[phone] [facility] [employer], [address], [place], [place], [address], [place] tel:[phone] [place] [address] No Information 7 Lacie Ybarra. [address], [place], [place], [address], [place]. tel:[phone] Referring Provider: Tate Lara, [address], [place], [address] . tel:[phone] [facility], [address], [place], [place], [address], [place] tel:[phone] [place] [address] No Information 7 Lacie Ybarra. [address], [place], [place], [address], [place]. tel:[phone] Referring Provider: Tate Lara, [address], [place], [address] . tel:[phone] [facility] [employer], [address], [place], [place], [address], [place] tel:[phone] [place] [address] No Information 5 Lacie Ybarra. [address], [place], [place], [address], [place]. tel:[phone] Referring Provider: Tate Lara, [address], [place], [address] . tel:[phone] [facility] [employer], [address], [place], [place], [address], [place] tel:[phone] [place] [address] No Information 5 Bhavik Gusman. [address], [place], [place], [address], [place]. tel:[phone] Referring Provider: Naseem Machado, [address], [place], [address] . tel:[phone] [facility], [address], [place], [place], [address], [place] tel:[phone] [facility] Dental examination 3 Bhavik Gusman. [address], [place], [place], [address], [place]. tel:[phone] Referring Provider: Naseem Machado, [address], [place], [address] . tel:[phone] [facility], [address], [place], [place], [address], [place] tel:[phone] [facility] Dental examination 3 Lacie Ybarra. [address], [place], [place], [address], [place]. tel:[phone] Referring Provider: Tate Lara, [address], [place], [address] . tel:[phone] [facility], [address], [place], [place], [address], [place] tel:[phone] [facility] Dental examination 3 No Information [facility], [address], [place], [place], [address], [place] tel:[phone] [facility] Dental examination 3 Bhavik Gusman. [address], [place], [place], [address], [place]. tel:[phone] Referring Provider: Naseem Machado, [address], [place], [address] . tel:[phone] [facility], [address], [place], [place], [address], [place] tel:[phone] [facility] Dental examination 3 Lacie Ybarra. [address], [place], [place], [address], [place]. tel:[phone] Referring Provider: Tate Lara, [address], [place], [address] . tel:[phone] [facility], [address], [place], [place], [address], [place] tel:[phone] [facility] Dental examination 2 Lacie Ybarra. [address], [place], [place], [address], [place]. tel:[phone] Referring Provider: Tate Lara, [address], [place], [address] . tel:[phone] [facility] [employer], [address], [place], [place], [address], [place] tel:[phone] [facility] No Information 2 Bhavik Gusman. [address], [place], [place], [address], [place]. tel:[phone] Referring Provider: Naseem Machado, [address], [place], [address] . tel:[phone] [facility] [employer], [address], [place], [place], [address], [place] tel:[phone] [facility] No Information 2 Lacie Ybarra. [address], [place], [place], [address], [place]. tel:[phone] Referring Provider: Tate Lara, [address], [place], [address] . tel:[phone] [facility] [employer], [address], [place], [place], [address], [place] tel:[phone] [facility] No Information 2 Bhavik Gusman. [address], [place], [place], [address], [place]. tel:[phone] Referring Provider: Naseem Machado, [address], [place], [address] . tel:[phone] [facility], [address], [place], [place], [address], tel:[phone] [facility] Dental examination 2 No Information [facility] [facility], [address], [place], [place], [address], tel:[phone] [facility] Dental examination 2 No Information [facility], [address], [place], [place], [address], tel:[phone] [facility] Dental examination 1 Lacie Ybarra. [address], [place], [address], . tel:[phone] Referring Provider: Tate Lara, [address], [place], [address] . tel:[phone] [facility] [facility], [address], [place], [place], [address], tel:[phone] [facility] Dental examination 1 No Information [facility], [address], [place], [place], [address], tel:[phone] [facility] Dental examination 1 No Information Family History Family Member Type Diagnosis Age At Onset No Information Payers Payer name Insurance type Covered green party ID Sheng dong(s) D [employer] CI [id number] Social History Type Description Quantity Date Captured [...]
[2025-07-23 15:26] VITALS: BMI 30.2
[2025-07-23 15:40] VITALS: BP 151/84; PULSE 105; RESP 19; TEMP 36.8; O2SAT 97; BMI 30.3
[2025-07-23 16:53] LABS: Alanine Aminotransferase 13 U/L (12-78); Albumin Level 3.1 g/dl (3.5-5.0); Albumin/Globulin Ratio 0.8 (1.1-1.8); Alkaline Phosphatase 178 U/L (38-126); Anion Gap 11.0 mEq/L (5-15); Aspartate Amino Transferase 21 U/L (14-36); Bilirubin,Total 1.4 mg/dl (0.2-1.3); Blood Urea Nitrogen 3 mg/dl (7-17); Calcium 9.1 mg/dl (8.4-10.2); Carbon Dioxide 20 mmol/L (22.0-30.0); Chloride 105 mmol/L (98-107); Creatinine Clearance Estimated 228 mL/min (50-200); Creatinine,Serum 0.50 mg/dl (0.52-1.04); Estimated Glomerular Filt Rate 153 ml/min (>60); GFR (African American) 185 ML/MIN (>60); Globulin 4.0 g/dL (1.3-3.2); Glucose 113 mg/dl (74-100); Sodium 133 mmol/L (136-145); Total Protein,Serum 7.1 g/dl (6.3-8.2)
[2025-07-23 17:04] LABS: Potassium 3.0 mmoL/L (3.5-5.1)
[2025-07-23 17:20] LABS: Hematocrit 33.0 % (37.0-47.0); Hemoglobin 11.6 g/dL (12.2-16.2); Immature Granulocytes % 1.4 %; Mean Corpuscular HGB Conc 35.2 g/dL (31.8-35.4); Mean Corpuscular Hemoglobin 31.7 pg (27.0-31.2); Mean Corpuscular Volume 90.2 fl (81-99); Nucleated Red Blood Cells % 0 %; Platelet Count 213 K/mm3 (142-424); Red Blood Count 3.66 M/mm3 (4.20-5.40); Red Cell Distribution Width-SD 42.3 fL; White Blood Count 14.8 K/mm3 (4.8-10.8)
[2025-07-23 17:23] LABS: Magnesium 1.6 mg/dl (1.6-2.3)
[2025-07-23 17:32] LABS: OB Protein,Urine (DIP) Negative (Negative)
[2025-07-23] MEDS: POTASSIUM CHLORIDE 20MEQ TAB 40 MEQ PO ×2 (17:44→21:28)
[2025-07-23] MEDS: MAGNESIUM SULFATE IN WATER 2 GM/50 ML PIGGYBACK IV ×2 (17:49→18:40)
[2025-07-23 18:51] LABS: Microscopic, Urine URINE MICROSCOPIC (MICROSCOPIC)
[2025-07-23 18:52] LABS: Bilirubin,Urine Negative (Negative); Color,Urine YELLOW (Yellow); Glucose,Urine (UA) Negative (Negative); Ketones,Urine 1+ (Negative); Leukocyte Esterase,Urine 1+ (Negative); PH,Urine 6.5 (5.0-8.5); Protein,Urine Negative (Negative); Specific Gravity, Urine 1.010 (1.005-1.030); Urobilinogen,Urine 0.2 EU/dl (0.2)
[2025-07-23 19:12] LABS: Bacteria,Urine 4+ /lpf; Squamous Epithelial Cell,Urine 50-100 #/hpf (0-5)
[2025-07-23 19:23] VITALS: BP 133/78; PULSE 97; RESP 18; TEMP 36.9; O2SAT 96
[2025-07-23] MEDS: ACETAMINOPHEN 500MG TAB 1000 MG PO (21:54)
[2025-07-23] MEDS: LACTATED RINGERS 1000ML 500 ML IV (23:38)
[2025-07-24] MEDS: POTASSIUM CHLORIDE 20MEQ TAB 40 MEQ PO (01:57)
[2025-07-24 04:02] VITALS: BP 123/71; PULSE 76; RESP 16; TEMP 36.8; O2SAT 98
[2025-07-24 06:57] LABS: Albumin Level 2.6 g/dl (3.5-5.0); Chloride 109 mmol/L (98-107); Potassium 4.0 mmoL/L (3.5-5.1); Sodium 133 mmol/L (136-145)
[2025-07-24 06:59] LABS: Alanine Aminotransferase 11 U/L (12-78); Aspartate Amino Transferase 19 U/L (14-36); Blood Urea Nitrogen 3 mg/dl (7-17); Creatinine Clearance Estimated 228 mL/min (50-200); Creatinine,Serum 0.50 mg/dl (0.52-1.04); Estimated Glomerular Filt Rate 153 ml/min (>60); GFR (African American) 185 ML/MIN (>60)
[2025-07-24 07:00] LABS: Albumin/Globulin Ratio 0.7 (1.1-1.8); Alkaline Phosphatase 158 U/L (38-126); Anion Gap 7.0 mEq/L (5-15); Bilirubin,Total 1.1 mg/dl (0.2-1.3); Calcium 8.9 mg/dl (8.4-10.2); Carbon Dioxide 21 mmol/L (22.0-30.0); Globulin 3.6 g/dL (1.3-3.2); Glucose 83 mg/dl (74-100); Magnesium 1.9 mg/dl (1.6-2.3); Total Protein,Serum 6.2 g/dl (6.3-8.2)
[2025-07-24 07:24] VITALS: BP 148/85; PULSE 83; RESP 15; TEMP 36.9; O2SAT 100
[2025-07-24] MEDS: ONDANSETRON 4MG/2ML VIAL 4 MG IV ×2 (07:29→17:41)
--- NOTE | 2025-07-24 07:53 | P.HP_ITS ---
History of Present Illness *Admission Date: 07/23/25 *Reason for visit:: Induction *History of present illness: Juliana Ryder is a pleasant 25-year-old at 37 weeks and 1 days gestation who presented to labor and delivery for induction of labor. She has an TIFFANIE of 08/14/2025 and this is based on her last menstrual period and first trimester ultrasound. Her has been recurrent SAB and preeclampsia. She is taking Lovenox and aspirin throughout her for a history of recurrent SAB. Her last dose of Lovenox was on Monday. She has been monitored closely, preeclampsia diagnosis was made around 34 weeks gestation and her blood pressures have been moderate to well-controlled since then, no severe range blood pressures noted. On presentation patient endorsed good movement and denies any leakage of fluid or vaginal bleeding. A+, antibody negative, rubella immune, hepatitis B negative, hepatitis C negative, RPR negative, HIV negative 1 hour GTT: 137 GBS negative PFS PFS Disclaimer: The information contained in this section may have been updated after the patient was seen, as this information can be updated by other users. Medical History Pre-eclampsia affecting , antepartum Heartburn during History of recurrent miscarriages Encounter for supervision of other normal , second trimester Early stage of SAB (spontaneous ) Surgical History H/O dilation and curettage 10/12/2023, [facility] March 2024, [facility] [place] teeth removed Family History Other Asthma Coronary artery disease Heart attack Hypertension Social History (Updated 07/23/25 @ 16:42 by Emiliana Bruce RN) Smoking Status: Never smoker alcohol intake: never substance use type: denies use current occupational status: unemployed Travel in the last 8 weeks?: None current occupation: [employer]: Yes do you feel safe at home: Yes victim of physical abuse: No victim of emotional abuse: No victim of sexual abuse: No Have you lived/traveled outside US in past 30 days?: No Contact w/someone who lives/traveled outside US past 30 days?: No Exposure to someone with infectious disease in past 14 days?: No Do you have a fever (greater than 100.4 F or 38 C)?: No Have you tested positive for COVID-19?: No Exposed to someone with COVID-19 in past 14 days?: No Do you have a sore throat?: No Do you have a cough?: No Do you have any weakness?: No Are you experiencing any nausea/vomitting?: No Do you have any diarrhea?: No Are you experiencing any unusual bleeding?: No Do you have any muscle aches/pain?: No Do you have any abdominal pain?: No Are you experiencing loss of taste or smell?: No Other Medical History Have you received the Flu Vaccine for this season: No Have you received the Pneumonia Vaccine: No Review of Systems Review of Systems Review of systems (narrative): Review of Systems Constitutional: Denies fever, chills, and sweats Eyes: Denies vision change/ pain Respiratory: Denies cough and shortness of breath Cardiovascular: Denies chest pain and lightheadedness Gastrointestinal: Denies abdominal pain. Denies nausea, vomiting. Genitourinary: Denies dysuria and incontinence Musculoskeletal: Denies shoulder pain and back pain Neurological: Denies change in speech or headaches Meds Home Medications and Allergies Home Medications ?Medication ?Instructions ?Recorded ?Confirmed ?Type enoxaparin 40 mg/0.4 mL 40 mg (0.4 mL) SQ DAILY #12 mL 06/20/25 07/23/25 Rx subcutaneous syringe (Lovenox) pantoprazole 40 mg tablet,delayed 40 mg PO DAILY #30 t abs 07/03/25 07/23/25 Rx release (Protonix) vit no.95-ferrous 1 tab PO DAILY #90 tabs 07/23/25 Rx fumarate 28 mg-folic acid 800 mcg tablet () famotidine 20 mg tablet 20 mg PO DAILY 07/24/2506/27 History New Prescriptions to Start Prescriptions: Allergies Allergy/AdvReac Type Severity Reaction Status Date / Time No Known Allergies Allergy Verified 07/22/25 10:01 Exam Data for Last 24 hours Vital signs and Labs for Last 24 Hours: Temp Pulse Resp BP Pulse Ox O2 Del Method 98.3 F 76 16 123/71 98 Room Air 07/24/25 04:02 07/24/25 04:02 07/24/25 04:02 07/24/25 04:02 07/24/25 04:02 07/24/25 04:02 Laboratory Results - last 24 hr 07/23/25 16:28: WBC 14.8 H, RBC 3.66 L, Hgb 11.6 L, Hct 33.0 L, MCV 90.2, MCH 31.7 H, MCHC 35.2, RDW 12.9, Plt Count 213, MPV 11.4 H, Neut % (Auto) 78.9, Lymph % (Auto) 12.6, Barren % (Auto) 6.4, Eos % (Auto) 0.5, Baso % (Auto) 0.2, Neut # (Auto) 11.7 H, Lymph # (Auto) 1.9, Barren # (Auto) 0.9, Eos # (Auto) 0.1, Baso # (Auto) 0.0, Sodium 133 L, Potassium 3.0 L, Chloride 105, Carbon Dioxide 20 L, Anion Gap 11.0, BUN 3 L, Creatinine 0.50 L D, Estimated Creat Clear 228, Estimated GFR 153, Est GFR ( Amer) 185 D, Glucose 113 H, Calcium 9.1, Magnesium 1.6, Total Bilirubin 1.4 H, AST 21, ALT 13, Alkaline Phosphatase 178 H , Total Protein 7.1, Albumin 3.1 L, Globulin 4.0 H, Albumin/Globulin Ratio 0.8 L , Blood Type A Positive, Antibody Screen Negative 07/23/25 16:39: Urine Color Yellow, Urine Appearance Clear, Urine pH 6.5, Ur Specific [place] 1.010, Urine Protein Negative, Urine Glucose (UA) Negative, Urine Ketones 1+, Urine Blood Negative, Urine Nitrate Negative, Urine Bilirubin Negative, Urine Urobilinogen 0.2, Ur Leukocyte Esterase 1+ A, Urine RBC 3-5, Urine WBC 10-20, Ur Squamous Epith Cells 50-100, Urine Bacteria 4+ 07/23/25 : Urine Protein Negative 07/24/25 05:58: Sodium 133 L, Potassium 4.0 D, Chloride 109 H, Carbon Dioxide 21 L, Anion Gap 7.0, BUN 3 L, Creatinine 0.50 L, Estimated Creat Clear 228, Estimated GFR 153, Est GFR ( Amer) 185, Glucose 83 D, Calcium 8.9, Magnesium 1.9 D, Total Bilirubin 1.1, AST 19, ALT 11 L, Alkaline Phosphatase 158 H, Total Protein 6.2 L, Albumin 2.6 L D, Globulin 3.6 H, Albumin/Globulin Ratio 0.7 L I & O for Last 24 hours: Intake & Output 07/21/25 07/22/25 07/23/25 07/24/25 23:59 23:59 23:59 23:59 Intake Total 42.5 / 42.5 550 / 550 Balance 42.5 / 42.5 550 / 550 Weight 182 lb 0.006 oz Narrative: General: patient is alert oriented in no acute distress and responds appropriately to questions. HEENT: NCAT, EOMI, moist mucous membranes, neck supple with full ROM Cardiovascular: RRR +S1/S2, no murmurs or rubs Pulmonary: Clear to auscultation bilaterally, nonlabored breathing, symmetric chest rise Abdominal: Gravid abdomen appropriate for gestation. No guarding, rebound, or tenderness noted. Extremities: trace edema, no tenderness or cyanosis noted Skin: Normal turgor, intact, warm. Negative for erythema, pallor, petechia, or lesions Neurologic: Negative for sensory or motor deficit Psychiatric: Normal affect, normal thought process, good judgment and insight, no depression or anxious mood appreciated. *Routine HEENT Exam Head: Present normocephalic and atraumatic Eye: Present EOMI, PERRL and normal accommodation; Absent conjunctival icterus, scleral injection, nystagmus or exophthalmos ENT: Present mucous membranes moist *Routine Respiratory Exam Respiratory: Present CTA bilaterally, normal respiratory effort, able to speak in complete sentences and symmetric chest movement; Absent accessory muscle use, decreased breath sounds, rales, respiratory distress, wheezes, distant breath sounds or diminished air movement *Routine Cardiovascular Exam Cardiovascular: Present RRR, Normal S1 and Normal S2; Absent murmur or gallop *Routine Abdominal Exam Abdominal: Present soft and normoactive bowel sounds; Absent tenderness, distended, rebound or guarding *Routine Rectal Exam Rectal:: deferred *Routine Genitalia Exam Genitalia:: normal female Assessment and Plan *Assessment and plan (1) Preeclampsia: Status: Acute Qualifiers: Trimester: third trimester Qualified Code(s): O14.93 - Unspecified pre- eclampsia, third trimester Category: Medical Code(s): O14.90 - Unspecified pre-eclampsia, unspecified trimester (2) Heartburn during : Status: Acute Qualifiers: Trimester: third trimester Qualified Code(s): O26.893 - Other specified related conditions, third trimester; R12 - Heartburn Category: Medical Code(s): O26.899 - Other specified related conditions, unspecified trimester; R12 - Heartburn (3) : Status: Acute Qualifiers: Weeks of gestation: 37 weeks Qualified Code(s): Z3A.37 - 37 weeks gestation of Category: Medical Code(s): Z34.90 - Encounter for supervision of normal , unspecified, unspecified trimester (4) History of recurrent miscarriages: Status: Acute Category: Medical Code(s): N96 - Recurrent loss (5) Encounter for induction of labor: Status: Acute Category: Medical Code(s): Z34.90 - Encounter for supervision of normal , unspecified, unspecified trimester Plan - Monitor vitals - Admit to L&D for induction of labor - Plan for induction with 25mcg of vaginal cytotec [id number] per protocol - Plan for augmentation of labor with AROM and pitocin if required. - External FHR and TOCO monitor - GBS neg/ Blood type: A+ - Hemoglobin: 11.6, Plt: 213 - Plan for epidural anesthesia - Anticipate vaginal delivery of female : Romero #Preeclampsia - Monitor blood pressures closely - Obtain PIH labs every 24 hours Pt was brought in for IOL. She received one dose of 25mcg of vaginal cytotec on 07/23/25 and the rest were held. During the day of 07/24/25 she received 3 additional doses of PV 25mcg cytotec. She remained 1cm. I placed a olvera balloon around 430. when it came out RN checked her and SVE: 3cm/80%. We will start pitocin around 6am. and AROM around 8am.
[2025-07-24 10:40] LABS: RPR W/RFX Titers Nonreactive (Nonreactive)
[2025-07-24 16:24] VITALS: BP 141/80; PULSE 78; RESP 17; TEMP 36.8; O2SAT 100
--- NOTE | 2025-07-24 16:47 | EXP.LABOR.NO ---
Labor Note Subjective: Date: 07/24/25 Time: 16:47 irregular contractions Objective: NST:: Reactive Contractions:: infrequent Cervical Dilation:: 1-2 Effacement:: 80% Station: -3 Membranes: intact Fetus: Monitoring?: Yes monitoring type:: External Assessment: Labor progressing?: Yes Cephalopelvic disproportion?: No Plan: Plan for ?: No Continue to monitor?: Yes Comment:: Doing well. She has had 4 doses of 25 mcg of vaginal Cytotec. I counseled on and placed a Alcantara balloon with 80 mL of normal saline in the uterine balloon and 0 mL in the vaginal balloon. infant tolerated well. Pt c/o increased vaginal pressure. Plan to start Pit at 6am
[2025-07-24] MEDS: BUTORPHANOL TARTRATE 1 MG/ML VIAL IV ×2 (17:43→23:40)
[2025-07-24] MEDS: CALCIUM CARBONATE 500MG CHEWTAB 1000 MG PO (23:41)
[2025-07-25] VITALS (8 sets, daily range): BP systolic 104–135; BP diastolic 65–78; PULSE 81–102; RESP 17–24; TEMP 36.3–37.3; O2SAT 100
--- NOTE | 2025-07-25 03:22 | EXP.LABOR.NO ---
Labor Note Subjective: Date: 07/25/25 Time: 03:22 irregular contractions Objective: NST:: Reactive Contractions:: every 2-3 minutes Cervical Dilation:: 6 Effacement:: 90% Station: -1 Membranes: intact Fetus: Monitoring?: Yes monitoring type:: External Assessment: Labor progressing?: Yes Cephalopelvic disproportion?: No Plan: Anesthesia for epidural?: Yes Plan for ?: No Continue to monitor?: Yes Comment:: doing well. Alcantara catheter removed prior to my assessment. pt was resting comfortably, has not received or requested epidural yet.
--- NOTE | 2025-07-25 05:14 | EXP.ANES.CKL ---
[facility] Disclaimer: The information contained in this section may have been updated after the patient was seen, as this information can be updated by other users. Medical History Pre-eclampsia affecting , antepartum Heartburn during History of recurrent miscarriages Encounter for supervision of other normal , second trimester Early stage of SAB (spontaneous ) Surgical History H/O dilation and curettage 10/12/2023, [facility] March 2024, [facility] [place] teeth removed Family History Other Asthma Coronary artery disease Heart attack Hypertension Social History (Updated 07/23/25 @ 16:42 by Emiliana Bruce RN) Smoking Status: Never smoker alcohol intake: never substance use type: denies use current occupational status: unemployed Travel in the last 8 weeks?: None current occupation: [employer]: Yes do you feel safe at home: Yes victim of physical abuse: No victim of emotional abuse: No victim of sexual abuse: No Have you lived/traveled outside US in past 30 days?: No Contact w/someone who lives/traveled outside US past 30 days?: No Exposure to someone with infectious disease in past 14 days?: No Do you have a fever (greater than 100.4 F or 38 C)?: No Have you tested positive for COVID-19?: No Exposed to someone with COVID-19 in past 14 days?: No Do you have a sore throat?: No Do you have a cough?: No Do you have any weakness?: No Are you experiencing any nausea/vomitting?: No Do you have any diarrhea?: No Are you experiencing any unusual bleeding?: No Do you have any muscle aches/pain?: No Do you have any abdominal pain?: No Are you experiencing loss of taste or smell?: No [facility] Anesthesia Checklist Patient Identification Patient Identification: Arm Band Structural Data Admitted From: Inpatient Planned Operative Procedure/s: Labor Epidural Consent for Planned Operative Procedure(s) Verified: Yes Verified Documents: Surgical Consent and History and Physical Additional verifications Anesthesia Reactions: No Hx Blood Transfusions: No Blood Transfusion Reaction: No Neurological Assessment Level of Consciousness: Awake, Alert and Appropriate Anesthesia Plan Anesthesia Risk discussed: Yes Anesthesia Plan: Verified ASA Class: II Anesthesia Type: Epidural
[2025-07-25 06:03] LABS: Microscopic, Urine URINE MICROSCOPIC (MICROSCOPIC)
[2025-07-25 06:06] LABS: Bilirubin,Urine Negative (Negative); Color,Urine YELLOW (Yellow); Glucose,Urine (UA) Negative (Negative); Ketones,Urine 2+ (Negative); Leukocyte Esterase,Urine Negative (Negative); PH,Urine 6.5 (5.0-8.5); Protein,Urine Negative (Negative); Specific Gravity, Urine 1.015 (1.005-1.030); Urobilinogen,Urine 2.0 EU/dl (0.2)
[2025-07-25 06:13] LABS: Bacteria,Urine Trace /lpf; Squamous Epithelial Cell,Urine Occasional #/hpf (0-5)
[2025-07-25 06:14] LABS: WBC,Urine Occasional #/hpf (0-3)
[2025-07-25] MEDS: DEXTROSE 5%-LACTATED RINGERS 1,000 ML 125 ML IV ×2 (06:20→14:03)
[2025-07-25] MEDS: OXYTOCIN/RINGERS LACTATE 30 UNITS/500 ML BAG IV (06:20)
[2025-07-25] MEDS: LACTATED RINGERS 1000ML 500 ML 999 ML IV (06:21)
[2025-07-25] MEDS: ONDANSETRON 4MG/2ML VIAL 4 MG IV (15:55)
--- NOTE | 2025-07-25 17:49 | PC.NURSE ---
1745 code yellow for , project economist surgery team notified [id number] anesthesia notified [id number] lester and maribell notified [id number] dr barnard notified
--- NOTE | 2025-07-25 17:56 | EXP.LABOR.NO ---
Labor Note Subjective: Date: 07/25/25 Time: 17:56 regular contraction Objective: NST:: Reactive Contractions:: every 2-3 minutes Cervical Dilation:: 9-10 Effacement:: 100% Station: 0 Membranes: ruptured Fetus: Monitoring?: Yes monitoring type:: Internal and External Assessment: Labor progressing?: No Cephalopelvic disproportion?: Yes Plan: Anesthesia for epidural?: Yes Continue to labor down?: No Plan for ?: Yes Comment:: Discussed the risk of bleeding, infection injury to the surrounding structures. Patient consented to blood transfusion to medically necessary. Reviewed the rare risk of hysterectomy if bleeding is unable to be controlled. The patient has no allergies and will receive 2g of Ancef and 500mg of IV azithromycin preoperatively. She will receive a vaginal prep. Reviewed the risk of injury to surrounding structures including the bowel, bladder, reproductive organs, and neurovascular bundles. discussed risks of VTE, anesthesia and . Discussed that if complication occurred it could prolong surgery, require additional surgeries or require transfer to a tertiary care center. Patient voiced understanding. Patient and significant other voiced understanding desire to proceed Discussed that the patient had been in labor for a long time and is high risk for PPH, i will take the hemorrhage case to the OR. I discussed that i recommended repeat delivery with future given indication for failure to descend after pushing for greater than 2 hours.
[2025-07-25] MEDS: AZITHROMYCIN 500 MG in 0.9 % SODIUM CHLORIDE 250 ML 250 MG IV (18:43)
--- NOTE | 2025-07-25 19:33 | P.OP_ITS ---
Date of procedure: 07/25/25 Pre-op Diagnosis:: 1. 37 weeks 2 days gestation, [place] 2. Recurrent SAB 3. Preeclampsia 4. Failure to descend 5. GBS negative 6. Rh Positive Post-op Diagnosis:: 1. 37 weeks 2 days gestation, [place] 2. Recurrent SAB 3. Preeclampsia 4. Failure to descend 5. GBS negative 6. Rh Positive Procedure performed:: Primary Delivery Surgeon:: Mylene Pradhan DO Staff Editor(s):: Dereck Samaniego DO STOVE POLISHER:: Melecio Cuevas Anesthesia: epidural Estimated blood loss (mL): 700 Clinical Note:: Juliana Ryder is a wonderful 25-year-old who presented for induction of labor secondary to preeclampsia. She received 4 doses of 25 mcg of vaginal Cytotec followed by Alcantara balloon followed by Pitocin and AROM. She progressed to complete and pushed for a little over 2 hours without any descent appreciable. She was counseled for a primary delivery and consented Operative findings:: 1. Live viable female : Romero. Weight: 7pounds 2ounces. Apgars 5/7/9 at 1, 5, and 10 minutes respectively 2. Normal-appearing fallopian tubes and ovaries bilaterally Operative note:: Medications: 2 g of Ancef, 500mg IV Azithromycin, 1g TXA Summary: Procedure explained in its entirety. The patient was counseled on the risks and benefits of section including bleeding, vascular injury, infection, and injury to the surrounding structures. Hemorrhage requiring life saving blood transfusion resulting in blood born viral infection or allergic reaction was explained and the patient consented to blood transfusion. Possible need for further operative measures prolonging recovery time and hospitalization reviewed to include hysterectomy. Procedure explained in its entirety and patie nt had no further questions. Consented to procedure. The patient was taken back to the operating room where adequate epidural anesthesia was obtained. Pneumatic compression stockings applied to lower extremities. Above antibiotics were administered for for infection prophylaxis. She was placed in the dorsal supine position. Urinary catheter was placed and found to be draining blood-tinged urine from head compressions to the bladder. The patient was prepped and draped in sterile fashion. Vaginal prep was completed. Anesthesia was tested and and found to be adequate. A Pfannenstiel skin incision was made with the scalpel. Subcutaneous bleeding vessels were cauterized with the bovie. The incision was taken down to the fascia with the bovie. The fascia was knicked in the midline and sharply extended laterally. The superior aspect of the fascia was grasped with Anand clamps and the rectus muscle was taken down with the Bovie. The rectus muscle was sharply dissected from the midline with Mayos. This process was repeated inferiorly. The rectus muscles were in the midline, peritoneum was identified and entered bluntly. Prasanna O retractor was placed and the bladder was noted to be out of the operative field. A bladder flap was created with Metzenbaum scissors and Libyan pickups. The lower uterine segment was easily identified, sharply incised, and entered bluntly with the surgeon's index finger. Incision was then extended in a superior and inferior fashion by blunt separation. Membranes were ruptured revealing clear fluid. The fetus was in cephalic presentation. The head was lodged very deep into the pelvis. The hand from below was used for assistance of scalp delivery. The infant was in an OP position and unable to flex forward making delivery of the head challenging. The head was carefully elevated out of the pelvis and delivered within 60 seconds of uterine incision. Fundal pressure was applied when head was brought into incision. The infants head was delivered without difficulty. The shoulder and body followed without complication. Delivery occurred at 1836. There was a double nuchal cord that was reduced following delivery. The infant was stimulated and the umbilical cord was clamped and cut. was taken to warmer for evaluation by the neurodiagnostic technologist. Arterial and venous cord gases were collected by circulating RN. Cord blood was collected. The placenta was delivered via fundal massage and found to be normal and intact. Placenta will be sent for pathology secondary to preeclampsia. 3 vessel cord was noted. IV Pitocin was initiated. Inside of the uterus was gently cleared of blood and clots with lap sponge. The hysterotomy was closed with #1 Vicryl in a running locked fashion. The lower uterine segment was visualized and noted to be hemostatic. The vesicouterine peritoneum was reapproximated with 2- 0 Monocryl as the edges were oozing. Hemostasis was noted. The patient was very nauseous with severe vomiting and the ovaries and tubes were not evaluated. The gutters were inspected bilaterally and cleared of blood and clots with lap sponges. The uterine incision was reinspected and hemostasis noted. Prasanna O retractor was removed. Bladder blade was placed and the incision was again evaluated hysterotomy was hemostatic. The peritoneum was reapproximated using a 2-0 Monocryl in a nonlocked running fashion. The fascia was closed in a running nonlocked fashion using 0 PDS x2 meeting right of midline. Fascia was noted as not having gaps or defects. The subcutaneous fat was closed with 2-0 Monocryl interrupted sutures x3. Skin was closed with the INSORB suture in a subcuticular fashion. Patient tolerated the procedure well and all counts were correct x3, per nursing. Patient will receive tap blocks and then be transported to the OB PACU for recovery and bonding. Condition: stable Disposition: floor Specimens:: 1 placenta 2 live viable female infant 3 Cord gases 4 Cord blood Complications:: None
--- NOTE | 2025-07-25 19:58 | P.PNANES_ITS ---
[facility] Anesthesia Record Part I Anesthesia Record I Intake, IV Amount: 600 Hydration: Adequate Estimated blood loss (mL): 300 Urine output (mL): 100 Blood Products used (#): none Blood Pressure: 124/78 SaO2: 100 Pulse Rate: 82 Airway Patency: Patent Respiratory Rate: 24 Temperature: 97.4 F Patient is:: Awake and Stable Stable to PACU at:: 19:40
[2025-07-25] MEDS: OXYTOCIN/RINGERS LACTATE 30 UNITS/500 ML BAG 999 UNITS IV (20:52)
[2025-07-25] MEDS: KETOROLAC 30MG/ML VIAL 30 MG IV (20:57)
[2025-07-25] MEDS: LANOLIN CREAM 40GM TP (23:51)
[2025-07-25] MEDS: ACETAMINOPHEN 500MG TAB 1000 MG PO (23:51)
[2025-07-26] MEDS: KETOROLAC 30MG/ML VIAL 30 MG IV ×3 (04:36→16:33)
[2025-07-26 04:41] VITALS: BP 132/78; PULSE 75; RESP 16; TEMP 36.9; O2SAT 99
[2025-07-26 05:52] LABS: Hematocrit 29.0 % (37.0-47.0); Hemoglobin 10.4 g/dL (12.2-16.2); Immature Granulocytes % 1.0 %; Mean Corpuscular HGB Conc 35.9 g/dL (31.8-35.4); Mean Corpuscular Hemoglobin 32.8 pg (27.0-31.2); Mean Corpuscular Volume 91.5 fl (81-99); Nucleated Red Blood Cells % 0 %; Platelet Count 183 K/mm3 (142-424); Red Blood Count 3.17 M/mm3 (4.20-5.40); Red Cell Distribution Width-SD 43.3 fL; White Blood Count 24.4 K/mm3 (4.8-10.8)
[2025-07-26] MEDS: ACETAMINOPHEN 500MG TAB 1000 MG PO ×3 (06:15→18:48)
[2025-07-26 08:45] VITALS: BP 119/73; PULSE 85; RESP 16; TEMP 36.4; O2SAT 99
[2025-07-26 09:34] LABS: Total Cells Counted 100
[2025-07-26 09:35] LABS: RBC Morphology Normal
--- NOTE | 2025-07-26 10:03 | EXP.ACUTE.PN ---
Subjective *Date: 07/26/25 *Time: 10:03 Interval history: POD # 1 s/p PLTCS Feeling well. Pain controlled. Breast feeding. Lochia is appropriate. Voiding without difficulty and passing flatus. Tolerating regular diet. Denies fever/chills, chest pain and shortness of breath. No headaches, vision changes, lightheadedness/dizziness. No lower extremity swelling. Ambulating well ad tatum. Medical Exam Vital signs and Labs for Last 24 Hours: Vital Signs Temp Pulse Pulse Resp BP BP Pulse Ox 07/26/25 08:45 97.6 F 85 16 119/73 99 07/26/25 04:41 98.4 F 75 16 132/78 99 07/25/25 23:20 98.3 F 81 17 104/65 L 07/25/25 21:32 99.2 F 83 18 130/74 07/25/25 20:10 97.6 F 91 H 18 130/74 100 07/25/25 20:02 97.4 F L 82 24 124/78 07/25/25 20:00 97.6 F 93 H 18 132/77 100 07/25/25 19:50 97.6 F 91 H 18 134/75 100 07/25/25 19:40 97.6 F 102 H 18 124/78 100 07/25/25 17:54 98.4 F 88 18 135/76 100 O2 Del Method 07/26/25 08:45 Room Air 07/26/25 04:41 Room Air 07/25/25 23:20 Room Air 07/25/25 21:32 Room Air 07/25/25 20:10 Room Air 07/25/25 20:02 07/25/25 20:00 Room Air 07/25/25 19:50 Room Air 07/25/25 19:40 Room Air 07/25/25 17:54 Room Air Intake and Output 07/25/25 07/26/25 07/26/25 23:59 07:59 15:59 Intake Total 2029.35 / 3011.20 184 / 184 Output Total 650 / 650 250 / 250 Balance 1380.35 / 2361.20 -66 / -66 Intake: Intake, Total IV Amount 2029.35 / 3011.20 184 / 184 Azithromycin 500 mg In 0.9 % 250 / 250 Sodium Chloride 250 ml @ 250 mls/hr IV ONCE ONE Rx#:[id number] Cefazolin Sodium 2 gm In 0.9 % 100 / 100 Sodium Chloride 100 ml @ 200 mls/hr IV PREOP ONE Rx#: [id number] Dextrose 5%-Lactated Ringers 1, 768.75 / 1731.25 000 ml @ 125 mls/hr IV .Q8H [facility] Rx#:[id number] Oxytocin/Ringers Lactate 30 61.85 / 80.20 units In 500 ml @ 0.003 UNITS/ MIN 3 mls/hr IV .Q25H ONE Rx#: [id number] Oxytocin/Ringers Lactate 30 249.75 / 249.75 184 / 184 units In 500 ml @ 40 mls/hr IV .[id number] [facility] Rx#:[id number] Output: Output, Urine Amount 250 / 250 Output, Urine Amount (Catheter) 650 / 650 Alcantara 650 / 650 Other: Number of Voids 1 Laboratory Results - last 24 hr 07/25/25 18:52: Cord ABG pH 7.40 07/26/25 05:36: WBC 24.4 H* D, RBC 3.17 L, Hgb 10.4 L, Hct 29.0 L, MCV 91.5, MCH 32.8 H, MCHC 35.9 H, RDW 13.2, Plt Count 183, MPV 11.1 H, Neut % (Auto) 80.2 H, Lymph % (Auto) 9.7 L, [place] % (Auto) 8.6, Eos % (Auto) 0.2, Baso % (Auto) 0.3, Neut # (Auto) 19.6 H, Lymph # (Auto) 2.4, [place] # (Auto) 2.1 H, Eos # (Auto) 0.1, Baso # (Auto) 0.1, Total Counted 100, Neutrophils % (Manual) 76, Lymphocytes % (Manual) 13, Monocytes % (Manual) 11 H, Platelet Estimate Normal, RBC Morphology Normal I & O for Labs for Last 24 Hours: Intake & Output 07/23/25 07/24/25 07/25/25 07/26/25 23:59 23:59 23:59 23:59 Intake Total 42.5 / 42.5 550 / 550 3011.20 / 3011.20 184 / 184 Output Total 650 / 650 250 / 250 Balance 42.5 / 42.5 550 / 550 2361.20 / 2361.20 -66 / -66 Weight 182 lb 0.006 oz Microbiology Reports for the Last 24 Hours: Microbiology 07/23/25 16:39 Urine,Clean Catch Urine Culture - Final Multiple organisms, suggests contamination. Head: Present atraumatic and normocephalic ENT: Present normal exam Neck: Present full ROM Respiratory: Present CTA bilaterally and normal respiratory effort Cardiac: Present Reg Rate and Rhythm GI: Present soft; Absent distention or tenderness Comments:: Uterine fundus firm and below umbilicus, Pfannenstiel incision clean/dry/intact with steri strips in place Rectal (female): Present deferred (female): Present deferred Extremities: Present full ROM and edema (+1 bilateral lower extremity edema); Absent calf tenderness Neuro: Present alert, awake and moves all extremities Assessment and Plan *Assessment and plan (1) S/P : Status: Acute Category: Surgical Code(s): Z98.891 - History of uterine scar from previous surgery (2) Encounter for induction of labor: Status: Acute Category: Medical Code(s): Z34.90 - Encounter for supervision of normal , unspecified, unspecified trimester (3) Preeclampsia: Status: Acute Qualifiers: Trimester: third trimester Qualified Code(s): O14.93 - Unspecified pre-eclampsia, third trimester Category: Medical Code(s): O14.90 - Unspecified pre-eclampsia, unspecified trimester (4) Leukocytosis: Status: Acute Qualifiers: Leukocytosis type: unspecified Qualified Code(s): D72.829 - Elevated white blood cell count, unspecified Category: Medical Code(s): D72.829 - Elevated white blood cell count, unspecified (5) Acute blood loss anemia: Status: Acute Category: Medical Code(s): D62 - Acute posthemorrhagic anemia Plan Continue routine care Encouraged increased ambulation AM Hgb 10.4 AM WBC 24.4 -- Repeat CBC at 1800 today -- Urine culture 07/23 demonstrated multiple organisms favoring contamination Continue to monitor BP Plan d/c home tomorrow evening
[2025-07-26] MEDS: PRENATAL MULTIVITAMIN W/IRON 1 EACH PO (16:33)
[2025-07-26 16:36] VITALS: BP 128/71; PULSE 86; RESP 17; TEMP 37.1; O2SAT 100
[2025-07-26 19:12] LABS: Hematocrit 27.3 % (37.0-47.0); Hemoglobin 9.5 g/dL (12.2-16.2); Immature Granulocytes % 1.3 %; Mean Corpuscular HGB Conc 34.8 g/dL (31.8-35.4); Mean Corpuscular Hemoglobin 32.3 pg (27.0-31.2); Mean Corpuscular Volume 92.9 fl (81-99); Nucleated Red Blood Cells % 0 %; Platelet Count 230 K/mm3 (142-424); Red Blood Count 2.94 M/mm3 (4.20-5.40); Red Cell Distribution Width-SD 45.0 fL; White Blood Count 23.0 K/mm3 (4.8-10.8)
[2025-07-26 20:03] VITALS: BP 128/68; PULSE 89; RESP 16; TEMP 36.9; O2SAT 99
[2025-07-26] MEDS: IBUPROFEN 400 MG TABLET 800 MG PO (22:52)
[2025-07-26] MEDS: SENNA 8.6MG TABLET 8.6 MG PO (22:54)
[2025-07-26] MEDS: SIMETHICONE 80MG CHEWABLE TABLET 160 MG PO (22:55)
[2025-07-26 23:26] VITALS: BP 134/63; PULSE 86; RESP 18; TEMP 36.7; O2SAT 98
[2025-07-27 00:24] LABS: Microscopic, Urine URINE MICROSCOPIC (MICROSCOPIC)
[2025-07-27 00:34] LABS: Bilirubin,Urine Negative (Negative); Color,Urine YELLOW (Yellow); Glucose,Urine (UA) Negative (Negative); Ketones,Urine Negative (Negative); Leukocyte Esterase,Urine TRACE (Negative); PH,Urine 6.0 (5.0-8.5); Protein,Urine Negative (Negative); Specific Gravity, Urine 1.010 (1.005-1.030); Urobilinogen,Urine 0.2 EU/dl (0.2)
[2025-07-27] MEDS: ACETAMINOPHEN 500MG TAB 1000 MG PO (02:24)
[2025-07-27 04:02] VITALS: BP 118/67; PULSE 81; RESP 16; TEMP 36.6; O2SAT 98
[2025-07-27 06:23] LABS: Hematocrit 29.3 % (37.0-47.0); Hemoglobin 10.0 g/dL (12.2-16.2); Immature Granulocytes % 1.7 %; Mean Corpuscular HGB Conc 34.1 g/dL (31.8-35.4); Mean Corpuscular Hemoglobin 32.2 pg (27.0-31.2); Mean Corpuscular Volume 94.2 fl (81-99); Nucleated Red Blood Cells % 0 %; Platelet Count 237 K/mm3 (142-424); Red Blood Count 3.11 M/mm3 (4.20-5.40); Red Cell Distribution Width-SD 46.0 fL; White Blood Count 21.7 K/mm3 (4.8-10.8)
[2025-07-27 10:45] VITALS: BP 122/65; PULSE 108; RESP 17; TEMP 36.8; O2SAT 100
--- NOTE | 2025-07-27 11:35 | EXP.DC.SUM ---
General Admission date:: 07/23/25 Discharge date: 07/27/25 HPI HPI HPI: POD # 2 s/p PLTCS Feeling well. Pain controlled. Breast feeding. Lochia is appropriate. Voiding without difficulty and passing flatus. Tolerating regular diet. Denies fever/chills, chest pain and shortness of breath. No headaches, vision changes, lightheadedness/dizziness. Admits to bilateral lower extremity swelling. No calf pain. Ambulating well ad tatum. Hospital Course Hospital Course Hospital Course: Juliana Ryder is a pleasant 25-year-old at 37 weeks and 1 days gestation who presented to labor and delivery for induction of labor. She has an TIFFANIE of 08/14/2025 and this is based on her last menstrual period and first trimester ultrasound. Her has been recurrent SAB and preeclampsia. She is taking Lovenox and aspirin throughout her for a history of recurrent SAB. Her last dose of Lovenox was on Monday. She has been monitored closely, preeclampsia diagnosis was made around 34 weeks gestation and her blood pressures have been moderate to well-controlled since then, no severe range blood pressures noted. On presentation patient endorsed good movement and denies any leakage of fluid or vaginal bleeding. She underwent two day induction of labor with 4 doses of 25 mcg of vaginal Cytotec followed by Alcantara balloon followed by Pitocin and AROM. She progressed to complete and pushed for a little over 2 hours without any descent appreciable. She was counseled for a primary delivery and consented. She underwent primary on 07/25/25. She delivered a live female baby, Romero, weighing 7 pounds 2 ounces. Apgars 5/7/9 at 1, 5, and 10 minutes respectively. EBL 700 mL. She did well /postoperatively. Pain controlled. Breast feeding. Light lochia. Voiding without difficulty and passing flatus. Tolerating regular diet. Denies fever/chills, chest pain and shortness of breath. No headaches, dizziness/lightheadedness or vision changes. Vital signs stable, afebrile. Heart regular rate and rhythm. Lungs clear to auscultation. Abdomen soft, nontender. She had +2 bilateral lower extremity swelling. No calf pain. Ambulating well ad tatum. She had leukocytosis on POD # 1. She was asymptomatic. Urine culture 07/23 demonstrated contamination. Another urine was sent for urinalysis and was negative. WBC was trending down on POD # 2. Normal hospital course. She was discharged to home on POD # 2 with instructions to follow-up in the office in 2 weeks or sooner if needed. Exam Data for Last 24 hours Vital signs and Labs for Last 24 Hours: Temp Pulse Resp BP Pulse Ox O2 Del Method 98.3 F 108 H 17 122/65 100 Room Air 07/27/25 10:45 07/27/25 10:45 07/27/25 10:45 07/27/25 10:45 07/27/25 10:45 07/27/25 10:45 Laboratory Results - last 24 hr 07/26/25 18:59: WBC 23.0 H*, RBC 2.94 L, Hgb 9.5 L, Hct 27.3 L, MCV 92.9, MCH 32.3 H, MCHC 34.8, RDW 13.2, Plt Count 230 D, MPV 11.2 H, Neut % (Auto) 82.6 H, Lymph % (Auto) 8.5 L, Wallace % (Auto) 6.6, Eos % (Auto) 0.7, Baso % (Auto) 0.3, Neut # (Auto) 19.0 H, Lymph # (Auto) 2.0, Wallace # (Auto) 1.5 H, Eos # (Auto) 0.2, Baso # (Auto) 0.1 07/26/25 23:40: Urine Color Yellow, Urine Appearance Clear, Urine pH 6.0, Ur Specific [place] 1.010, Urine Protein Negative, Urine Glucose (UA) Negative, Urine Ketones Negative, Urine Blood 3+ A, Urine Nitrate Negative, Urine Bilirubin Negative, Urine Urobilinogen 0.2, Ur Leukocyte Esterase Trace, Urine RBC 10-20, Urine WBC 3-5, Ur Squamous Epith Cells 3-5, Urine Bacteria None 07/27/25 06:03: WBC 21.7 H*, RBC 3.11 L, Hgb 10.0 L, Hct 29.3 L, MCV 94.2, MCH 32.2 H, MCHC 34.1, RDW 13.3, Plt Count 237, MPV 11.3 H, Neut % (Auto) 83.6 H, Lymph % (Auto) 9.5 L, Wallace % (Auto) 4.0, Eos % (Auto) 0.8, Baso % (Auto) 0.4, Neut # (Auto) 18.2 H, Lymph # (Auto) 2.1, Wallace # (Auto) 0.9, Eos # (Auto) 0.2, Baso # (Auto) 0.1 I & O for Last 24 hours: Intake & Output 07/24/25 07/25/25 07/26/25 07/27/25 23:59 23:59 23:59 22:59 Intake Total 550 / 550 3011.20 / 3011.20 184 / 184 Output Total 650 / 650 250 / 250 Balance 550 / 550 2361.20 / 2361.20 -66 / -66 Constitutional Constitutional: no acute distress and cooperative *Routine HEENT Exam Head: Present normocephalic and atraumatic Eye: Absent conjunctivae pink ENT: Present mucous membranes moist *Routine Neck Exam Neck: Present full ROM *Routine Respiratory Exam Respiratory: Present CTA bilaterally and normal respiratory effort *Routine Cardiovascular Exam Cardiovascular: Present RRR *Routine Abdominal Exam Abdominal: Present soft and normoactive bowel sounds; Absent tenderness or distended Comments: Pfannenstiel incision clean/dry/intact with steri strips in place *Routine Rectal Exam Patient deferred: visual exam *Routine Exam Patient deferred: external exam *Routine Extremities Exam Extremities: Present edema (+2 bilateral lower extremity edema) and full ROM; Absent calf tenderness *Routine Neurological Exam Neurological: Present alert, moving all extremities and normal speech Routine Psychiatric Exam Psychiatric: Present normal affect and cooperative Results Data Completed and Pending Labs on day of discharge: Labs from last 24 hours 07/27/25 07/26/25 07/26/25 06:03 23:40 18:59 WBC 21.7 H* 23.0 H* RBC 3.11 L 2.94 L Hgb 10.0 L 9.5 L Hct 29.3 L 27.3 L MCV 94.2 92.9 MCH 32.2 H 32.3 H MCHC 34.1 34.8 RDW 13.3 13.2 Plt Count 237 230 D MPV 11.3 H 11.2 H Neut % (Auto) 83.6 H 82.6 H Lymph % (Auto) 9.5 L 8.5 L Wallace % (Auto) 4.0 6.6 Eos % (Auto) 0.8 0.7 Baso % (Auto) 0.4 0.3 Neut # (Auto) 18.2 H 19.0 H Lymph # (Auto) 2.1 2.0 Wallace # (Auto) 0.9 1.5 H Eos # (Auto) 0.2 0.2 Baso # (Auto) 0.1 0.1 Urine Color Yellow Urine Appearance Clear Urine pH 6.0 Ur Specific [place] 1.010 Urine Protein Negative Urine Glucose (UA) Negative Urine Ketones Negative Urine Blood 3+ A Urine Nitrate Negative Urine Bilirubin Negative Urine Urobilinogen 0.2 Ur Leukocyte Esterase Trace Urine RBC 10-20 Urine WBC 3-5 Ur Squamous Epith Cells 3-5 Urine Bacteria None DS: Diagnosis Discharge Diagnosis (1) S/P : Status: Acute Code(s): Z98.891 - History of uterine scar from previous surgery (2) Encounter for induction of labor: Status: Acute Code(s): Z34.90 - Encounter for supervision of normal , unspecified, unspecified trimester (3) Preeclampsia: Status: Acute Code(s): O14.90 - Unspecified pre-eclampsia, unspecified trimester Qualifiers: Trimester: third trimester Qualified Code(s): O14.93 - Unspecified pre-eclampsia, third trimester (4) Leukocytosis: Status: Acute Code(s): D72.829 - Elevated white blood cell count, unspecified Qualifiers: Leukocytosis type: unspecified Qualified Code(s): D72.829 - Elevated white blood cell count, unspecified (5) Acute blood loss anemia: Status: Acute Code(s): D62 - Acute posthemorrhagic anemia Meds Home Medications and Allergies Home Medications ?Medication ?Instructions ?Recorded ?Confirmed ?Type pantoprazole 40 mg tablet,delayed 40 mg PO DAILY #30 tabs 07/03/25 07/23/25 Rx release (Protonix) vit no.95-ferrous 1 tab PO DAILY #90 tabs 07/15/25 07/23/25 Rx fumarate 28 mg-folic acid 800 mcg tablet () famotidine 20 mg tablet 20 mg PO DAILY 07/24/25 07/24/25 History ibuprofen 800 mg tablet 800 mg PO Q8H PRN pain #20 tabs 07/26/25 Rx oxycodone 5 mg tablet 5 mg PO Q4HP PRN Moderate Pain 07/26/25 Rx (4-6) #20 tabs New Prescriptions to Start Prescriptions: Aleah Ricks oxycodone Aleah Samaniego Allergies Allergy/AdvReac Type Severity Reaction Status Date / Time No Known Allergies Allergy Verified 07/22/25 10:01 Discharge Plan Disposition Patient Disposition: Home, Self-Care Condition: Good Discharge Order Discharge Orders: Discharge Order (Routine); Ordered 07/27/25 Ordered By: Aleah Samaniego Follow up Plan Follow up with: Mylene Pradhan DO [Staff Physician, [facility]] - 07/29/25 Referral Note: Nurse visit Blood pressure check Prescriptions/Medication Reconciliation: New oxycodone 5 mg Tablet 5 mg PO Q4HP PRN (Reason: Moderate Pain (4-6)) Qty: 20 0RF ibuprofen 800 mg tablet 800 mg PO Q8H PRN (Reason: pain) Qty: 20 0RF Continued pantoprazole [Protonix] 40 mg tablet,delayed release (DR/EC) 40 mg PO DAILY Qty: 30 0RF PNV no.95-ferrous fumarate-FA [] 28 mg iron- 800 mcg tablet 1 tab PO DAILY Qty: 90 3RF famotidine 20 mg tablet 20 mg PO DAILY Patient Comments: TAKE 1 TABLET BY MOUTH ONCE A DAY Discontinued enoxaparin [Lovenox] 40 mg/0.4 mL syringe 40 mg SQ DAILY Qty: 12 8RF Problem Reconciliation Problems Reviewed?: Yes Patient Discharge Instructions ACTIVITY: Limited activity DIET: continue same diet and regular diet Additional Instructions: Discharge: 1. Take 800 mg Ibuprofen every 8 hours as needed for pain. You can also take 500-1000 mg of Tylenol in between doses, every 6-8 hours. If pain persists you can take Oxycodone 5 mg, 1 tablet every 4-6 hours or more as needed. 2. Nothing in the vagina for 6 weeks - no intercourse, douching or tampons. No tub baths/hot tubs or swimming pools - Drink plenty of fluids. - No strenuous activity or driving until released by your doctor. - Don't lift anything heavier than your in the pumpkin seat 3. Reasons to return to L&D or call On-Call doctor - fever (greater than 100.4) - heavy vaginal bleeding (soaking through 1 pad in less than 2 hours) - vaginal discharge (malodorous and/or purulent) - severe headaches not resolved by medication or rest 4. depression/blues - Normal to feel anxious/overwhelmed for first 2 weeks - Talk to your doctor if: severe anxiety, trouble bonding with baby, withdrawing from other family members, thoughts of harming yourself or others Patient Instructions: Depression, Hemorrhage, DI for , DI for Pre-eclampsia, [facility] Post Discharge Instructions Print Language: Slovenian Providers Primary Care Provider: Oleg Hager Admit Provider: Anastacio Fuentes Attending Provider: Mylene Pradhan
== END 2025-07-27 11:45 | disposition home or self-care (01) | DRG 787 ==
PROVIDERS: Obstetrics & Gynecology; Admitting Provider Nurse Practitioner Obstetrics & Gynecology; PCP Internal Medicine Adolescent Medicine; Visit Provider Obstetrics & Gynecology
PROC: 10D00Z1 Extraction of Products of Conception, Low, Open Approach (ICD-10-PCS; CPT 59514; principal; 2025-07-25 18:00)
DX: O14.94 Unspecified pre-eclampsia, complicating childbirth (principal); D62 Acute posthemorrhagic anemia; Z3A.37 37 weeks gestation of pregnancy; Z37.0 Single live birth; D72.829 Elevated white blood cell count, unspecified; O99.893 Other specified diseases and conditions complicating puerperium; O32.4XX0 Maternal care for high head at term, not applicable or unspecified; O90.81 Anemia of the puerperium; O69.81X0 Labor and delivery complicated by cord around neck, without compression, not applicable or unspecified; O26.893 Other specified pregnancy related conditions, third trimester; N96 Recurrent pregnancy loss; R12 Heartburn; Z79.01 Long term (current) use of anticoagulants; Z79.82 Long term (current) use of aspirin; Z79.899 Other long term (current) drug therapy; Z23 Encounter for immunization
CPT/HCPCS: 36415; 51702; 59025; 80053; 81001; 81002; 82800; 83735; 85007; 85025; 86592; 86850; 87086; 94761; C1758; J0456; J0595; J0665; J0666; J0690; J1200; J1885; J2003; J2405; J2550; J2590; J2704; J2795; J3010; J3475; J7050; J7120; J7121